=== PATIENT | female | born 1940 | race Caucasian/White ===

== ENCOUNTER → 2024-02-05 07:50 | Outpatient (REF) | payer MEDICARE, OTHER, SELFPAY | LOC: WDC 07:50 | PROVIDERS: ATTENDING PHYSICIAN Family Medicine | DX: R92.8 Other abnormal and inconclusive findings on diagnostic imaging of breast (principal) | CPT/HCPCS: 76642 ==

== ENCOUNTER 2024-02-08 16:08 | Emergency (ER) | payer MEDICARE, OTHER, SELFPAY ==
[2024-02-08 16:15] VITALS: BP 152/68
[2024-02-08 17:25] LABS: Urine Albumin Negative (Neg - Trace); Urine Bilirubin Negative (Negative); Urine Character Clear (Clear); Urine Color Yellow; Urine Glucose Negative (Negative); Urine Ketone Negative (Negative); Urine Leukocyte 2+ (Negative); Urine Nitrite Negative (Negative); Urine Occult Blood Trace (Negative); Urine Specific Gravity 1.015 (<1.030); Urine Urobilinogen Negative (Neg - 1+)
[2024-02-08 17:32] LABS: Urine Bacteria Moderate (Negative); Urine Red Blood Cell 0-2 /HPF (0-2); Urine Squamous Cell 16-20 /LPF (Few)
[2024-02-08] MEDS: NSS 500 IV (19:17)
[2024-02-08 19:34] LABS: % Basophils 0.7 % (0-2); % Eosinophils 2.6 % (0-6); % Immature Granulocytes 0.3 % (0-0.5); % Lymphocytes 25.3 % (20.5-51.1); % Monocytes 11.2 % (1.7-9.3); % Neutrophils 59.9 % (42.2-75.2); Absolute Basophils 0.1 10^3/uL (0-0.2); Absolute Eosinophils 0.2 10^3/uL (0-0.7); Absolute Lymphocytes 2.3 10^3/uL (1.2-3.4); Absolute Neutrophils 5.4 10^3/uL (1.4-6.5); Hematocrit 35.6 % (37.0-47.0); Hemoglobin 11.4 g/dL (12.0-16.0); Mean Corpuscular Hgb 22.4 pg (27.0-31.0); Mean Corpuscular Volume 69.9 fL (81.0-99.0); Mean Platelet Volume 9.6 fL (7.4-10.4); Nucleated Red Blood Cells % 0 %; Platelet Count 306 10^3/uL (130-400); Red Blood Cell Count 5.09 10^6/uL (4.20-5.40); Red Cell Dist. Width 15.3 % (11.5-14.5)
[2024-02-08 19:37] LABS: ALT (SGPT) 18 U/L (0-35); AST (SGOT) 25 U/L (14-36); Albumin 4.3 g/dl (3.5-5.0); Alkaline Phosphatase 55 U/L (38-126); Blood Urea Nitrogen 29 mg/dl (7-17); Calcium 9.7 mg/dl (8.4-10.2); Carbon Dioxide 25 mmol/L (22-30); Chloride 105 mmol/L (98-107); Glucose 98 mg/dl (70-99); Potassium 4.1 mmol/L (3.5-5.1); Sodium 136 mmol/L (135-145); Total Bilirubin 0.4 mg/dl (0.2-1.3); Total Protein 7.2 g/dl (6.3-8.2); eGFR > 60.00
--- NOTE | 2024-02-08 19:45 | ED.GENMED ---
History of Present Illness
General
Chief Complaint: Urinary Symptoms
Source: patient
Exam Limitations: none
Time Seen by Provider: 02/08/24 17:39
Nursing documentation reviewed up to this point in time: agreed with
Travel History
Have you had any contact with someone who has COVID-19?: No
Do you have any symptoms of coronavirus? Fever > 100 degrees, chills, cough, shortness of breath, sore throat, loss of taste or smell, muscle aches, or headache?: No
History of Present Illness
History of Present Illness:
see MDM
Past History
Past History
ED Past Medical History: GERD, HTN, Hypercholesterolemia and Other (Frequent UTI's)
ED Past Surgical History: Gynecological and Orthopedic
Social History
Tobacco: Non-smoker
Alcohol: None
Drug: None
Personal:
Living: with family
Family History
Family History: Other
Review of Systems
Review of Systems
Allergies reviewed?: Yes
All Other Systems: Not applicable
Phy Exam
Physical Exam
Physical Exam:
GENERAL: Alert , in no apparent distress, looks overall very well
EYE: pupils equal and reactive
NECK: Supple
ENT: o/p clr, mmm.
CARDIAC: Regular rate and rhythm .no tachy; + mild systolic murmur
LUNGS: Clear breath sounds bilaterally, no acute respiratory distress, no wheezes/rales/rhonchi
ABDOMEN: Soft, without focal tenderness, no r/g, no cvat, normal bowel sounds
NEUROLOGICAL: Alert and oriented, no focal neuro deficits
SKIN: Warm and dry, skin intact.
MUSCULOSKELETAL: No edema, well perfused. neg ana luisa's sign
PSYCH: Normal and appropriate interaction.
Course
Orders/Labs/Results
Orders:
Orders
02/08/24 17:08
Urinalysis Reflex To Culture Urgent
Date Specimen was Collected: 02/08/24
Time Specimen was Collected: 16:53
Urine Microscopic Reflex Cult Urgent
Urine Culture Urgent
JESUS Source: U
Specimen Description:
Date Specimen was Collected: 02/08/24
Time Specimen was Collected: 16:53
02/08/24 18:45
0.9% Sodium Chloride 500 ml [Nss] 500 ml IV BOLUS
02/08/24 18:46
CT Abd/pel Without Iv Or Oral Urgent
Comment:
Reason For Exam: back pain, h/o urosepsis from stone
02/08/24 19:18
Complete Blood Count/With Diff Urgent
Comprehensive Metabolic Panel Urgent
Lactic Acid Urgent
02/08/24 19:58
Hip, Right 2-3 Views [CR Hip - RT w/wo Pel 2-3 Vw*] Urgent
Comment:
Reason For Exam: fall ongoin pain
Include a pelvis x-ray?: No
02/08/24 19:59
CefTRIAXone [Rocephin] 1,000 mg IV NOW STA
Abnormal Lab Results
02/08/24 02/08/24
17:08 19:18
Hgb 11.4 L g/dL
(12.0-16.0)
Hct 35.6 L %
(37.0-47.0)
MCV 69.9 L fL
(81.0-99.0)
MCH 22.4 L pg
(27.0-31.0)
MCHC 32.0 L g/dL
(33.0-37.0)
RDW 15.3 H %
(11.5-14.5)
Absolute Monos (auto) 1.0 H 10^3/uL
(0.1-0.6)
Monocytes % 11.2 H %
(1.7-9.3)
BUN 29 H mg/dl
(7-17)
Ur Occult Blood Reflex Trace A
(Negative)
Leukocyte Esterase Rfl 2+ A
(Negative)
Urine WBC (Reflex) 11-15 A /HPF
(0-5)
Urine Bacteria (Reflex) Moderate A
(Negative)
02/08/24 19:18
02/08/24 19:18
Vital Signs
Initial and Last Documented VS:
Initial Vital Signs
Temp Pulse Resp BP Pulse Ox
97.8 F 64 18 152/68 98
02/08/24 16:15 02/08/24 16:15 02/08/24 16:15 02/08/24 16:15 02/08/24 16:15
Last Documented Vital Signs
Temp Pulse Resp BP Pulse Ox
98.7 F 63 18 145/53 97
02/08/24 21:37 02/08/24 20:38 02/08/24 16:15 02/08/24 20:38 02/08/24 20:38
MDM/Problems Addressed
Differential Diagnosis Includes:
uti, pyelo, infected stone
MDM/Problems Addressed:
83 y/o F with h/o frequent utis
here with daughter
has had fever/chills and urinary sypmtoms x 3 days
started empiric bactrim which she has had at home frmo her outpatient [place] urologist (has had urosepsis secondary to obstruction from kidney stone in the past)
has had 5 total doses but still having reproted chills and some back pain and felt weak today so daughter brought her here
she has been able to eat, no syncope, no cold symptoms, no diarrhea, vomiting,
well appearing
afebrile
stable vitals no signs of sepsis
back nontender
abdomen mild tenderness suprapbuci but no guarding
urine is contaminated bu thas bacteria, likely partially treated urine with bactrim or resistant
wbc normal
cr normal
ct no obstructive uropatphy
feels better afeter fluids, no fever
d/c home after dose of rocephin
pending culture, but switched to cefdinir.
*Critical Care Note
Total Time (30-74mins, 75-104mins- exclusive of procedures): Not Applicable
ED Attending Note
-
Portions of this chart may have been created with voice recognition software.� Occasional wrong word or��sound alike� substitutions may have occurred due to the inherent limitations of voice recognition software.
Discharge Plan
Departure
Patient Disposition: Home (Routine Discharge)
Date of Disposition: 02/08/24
Time of Disposition: 20:43
Patient with high blood pressure during this ER visit?: Yes
Condition: Fair
Covid-19: Not Applicable
Discharge Problem:
UTI (urinary tract infection)
Instructions: Urinary Tract Infection, Adult (DC), Hip Pain (DC), BLOOD PRESSURE
Prescriptions:
New
cefdinir 300 mg capsule
300 mg PO BID Qty: 14 0RF
No Action
tramadol 50 MG tablet
50 mg PO Q6HPRN PRN (Reason: L arm pain)
clopidogrel [Plavix] 75 MG tablet
75 mg PO DAILY
lisinopril 2.5 MG tablet
20 mg PO BID
gabapentin 100 MG capsule
100 mg PO HS
methenamine hippurate [Hiprex] 1 GM tablet
1 gm PO BID
ascorbic acid (vitamin C) [Vitamin C] 500 MG tablet
500 mg PO DAILY
Lacto 41-B.animalis,bifid-FOS [Ultimate Probiotic-10] 1 EACH capsule
1 ea PO QPM
omeprazole 20 MG capsule,delayed release(DR/EC)
20 mg PO . 1 HR PRE LUNCH
tamsulosin [Flomax] 0.4 MG capsule
0.4 mg PO DAILY
lorazepam 0.5 MG tablet
0.5 mg PO BID
carvedilol [Coreg] 25 MG tablet
25 mg PO BID
fluticasone propionate 1 SPRAY spray,suspension
1 spray NASSPRAY DAILY
Referrals:
UNKNOWN,NO INTERVIEW [Unknown Provider] -
Activity Restrictions/Additional Instructions:
YOU HAVE A URINE INFECTION
BUT NO SIGNS OF KIDNEY INFECTION OR SEPSIS TODAY
TAKE CEFDINIR TWICE A DAY FOR 7 DAYS STARTING TOMORROW
USE TYLENOL FOR PAIN OR FEVERS
DRINK FLUIDS
RETURN FOR: SEVERE PAIN, FEVER DESPITE ANTIBIOTICS, MORE WEAKNESS, VOMITING, DIARRHEA ETC
YOUR XRAY SHOWS ARTHRITIS IN YOUR HIP BUT NO FRACTURES
THIS COULD BE CAUSING YOUR PAIN
FOLLOW UP WITH YOUR DOCTOR NEEDED
Interventions
Interventions:
*Risk Screen - Suicide Last Done: 02/08/24 17:35
*General Assessment Last Done: 02/08/24 17:35
*Neglect/Abuse Screening Last Done: 02/08/24 17:35
*ED COVID-19 Vaccine History Last Done: 02/08/24 17:35
*Nursing Disposition Last Done: 02/08/24 21:37
ED-Female Genitourinary Assessment Last Done: 02/08/24 16:54
Discharge Date and Time
Discharge Date/Time: 02/08/24 21:39
Print Language: GREENLANDIC
[2024-02-08 20:38] VITALS: BP 145/53
[2024-02-08] MEDS: ROCEPHIN 1000 MG IV (20:49)
== END 2024-02-08 21:39 | disposition home or self-care (01) ==
LOC: EMR 16:08
PROVIDERS: Physician Assistant; EMERGENCY PHYSICIAN Emergency Medicine; FAMILY PHYSICIAN Family Medicine
DX: N39.0 Urinary tract infection, site not specified (principal); M54.9 Dorsalgia, unspecified; I10 Essential (primary) hypertension
CPT/HCPCS: 99285; 96374; 96361; 73502; 74176; 80053; 81003; 81015; 83605; 85025; 87086; 87088; 87186

== ENCOUNTER → 2024-08-25 14:36 | Outpatient (REF) | payer MEDICARE, OTHER, SELFPAY | LOC: WDC 14:36 | PROVIDERS: ATTENDING PHYSICIAN Family Medicine | DX: Z12.31 Encounter for screening mammogram for malignant neoplasm of breast (principal); R92.8 Other abnormal and inconclusive findings on diagnostic imaging of breast | CPT/HCPCS: 76642; 77063; 77067 ==

== ENCOUNTER 2024-10-12 11:56 | Emergency (ER) | payer MEDICARE, OTHER, SELFPAY ==
[2024-10-12 12:03] VITALS: BP 159/89
[2024-10-12 12:35] LABS: % Basophils 0.9 % (0-2); % Eosinophils 3.2 % (0-6); % Immature Granulocytes 0.4 % (0-0.5); % Monocytes 7.5 % (1.7-9.3); Absolute Basophils 0.1 10^3/uL (0-0.2); Absolute Eosinophils 0.2 10^3/uL (0-0.7); Absolute Monocytes 0.6 10^3/uL (0.1-0.6); Absolute Neutrophils 4.7 10^3/uL (1.4-6.5); Hematocrit 36.4 % (37.0-47.0); Hemoglobin 11.6 g/dL (12.0-16.0); Mean Corp Hgb Conc. 31.9 g/dL (33.0-37.0); Mean Corpuscular Hgb 22.7 pg (27.0-31.0); Mean Corpuscular Volume 71.1 fL (81.0-99.0); Mean Platelet Volume 9.4 fL (7.4-10.4); Nucleated Red Blood Cells % 0 %; Platelet Count 344 10^3/uL (130-400); Red Blood Cell Count 5.12 10^6/uL (4.20-5.40); Red Cell Dist. Width 15.5 % (11.5-14.5); White Blood Cell Count 7.6 10^3/uL (4.8-10.8)
[2024-10-12 12:37] LABS: ALT (SGPT) 19 U/L (0-35); AST (SGOT) 22 U/L (14-36); Albumin 4.6 g/dl (3.5-5.0); Alkaline Phosphatase 45 U/L (38-126); Blood Urea Nitrogen 24 mg/dl (7-17); Carbon Dioxide 28 mmol/L (22-30); Chloride 101 mmol/L (98-107); Glucose 130 mg/dl (70-99); Sodium 138 mmol/L (135-145); Total Bilirubin 0.3 mg/dl (0.2-1.3); Total Protein 7.2 g/dl (6.3-8.2); eGFR > 60.00
[2024-10-12 12:42] LABS: COVID-19 Antigen Negative (Negative)
[2024-10-12 12:49] LABS: NT-proBNP 774 pg/ml; Troponin I < 0.012 ng/ml
[2024-10-12 14:08] VITALS: BP 159/77
--- NOTE | 2024-10-12 15:55 | ED.GENMED ---
History of Present Illness
General
Chief Complaint: Chest Pain
Source: patient
Exam Limitations: none
Time Seen by Provider: 10/12/24 15:55
Nursing documentation reviewed up to this point in time: agreed with
History of Present Illness
History of Present Illness:
84-year-old female with history of HTN, HLD, GERD, UTI, anemia presents for 2 days of cold sweats, cough, shortness of breath chest tightness off and on.
Went to yesterday and tested neg for UTI an had EKG. Daughter states she has urine strips at home that show positive for UTI.
EKG daughter states was 'fine.' Was told to come to ER for chest pain but pt did not want to come.
Daughter at bedside states pt is a very anxious person and a lot of this may be from anxiety.
Denies n/v/d/c. Denies fever. Denies abdominal pain.
Daughter states pt had stress test a month ago which graphic designer 'wants to keep an eye on her.' Nothing acute.
Past History
Past History
ED Past Medical History: GERD, HTN, Hypercholesterolemia, Psychiatric (anxiety) and Other (Frequent UTI's)
ED Past Surgical History: Gynecological and Orthopedic
Social History
Tobacco: Non-smoker
Alcohol: None
Drug: None
Personal:
Living: with family
Family History
Family History: Other
Review of Systems
Review of Systems
Allergies reviewed?: Yes
All Other Systems: ROS reviewed and negative except as documented in HPI and ROS
Constitutional: Denies fever
Respiratory: Reports cough
Cardiac: Reports chest pain and diaphoresis ('cold sweats' intermittent past 2 days); Denies palpitations
ABD/GI: Denies abdominal pain, nausea, vomiting or diarrhea
: Denies dysuria, frequency or difficulty voiding
Musculoskeletal: Reports no symptoms
Skin: Reports no symptoms
Neurological: Reports no symptoms
Phy Exam
Physical Exam
Physical Exam:
GENERAL: No acute distress. A&Ox3.
CONSTITUTIONAL: Afebrile.
EYES: clear, conjunctivae normal
ENMT: moist mucus membranes, Pharynx nl
RESPIRATORY: Regular respirations, nonlabored, lungs clear.
CARDIOVASCULAR: Regular rate and rhythm, no murmurs, no rubs.
GI: Soft, nontender, normal BS
MUSCULOSKELETAL: Moves with ease. Well perfused.
SKIN: Warm, dry, pink
PSYCH: Normal mood and affect. Well kept, interactive and appropriate
NEUROLOGIC: Awake, alert and oriented. No focal neurological deficits
Scores
Heart Score for Chest Pain Patients
STEMI patient?: Not applicable
Course
Orders/Labs/Results
Orders:
Orders
10/12/24 12:02
Electrocardiogram (*1) Urgent
Reason for Study: Chest Pain
EKG- Treatment ONCE
10/12/24 12:13
COVID-19 Antigen Urgent
Source: Nasal Swab
Complete Blood Count/With Diff Urgent
Comprehensive Metabolic Panel Urgent
Pro-BNP [NT-proBNP] Urgent
Troponin I Urgent
Influenza A+B Rapid Molecular Urgent
JESUS Source: Nasal Swab
Specimen Description:
10/12/24 15:56
CR Chest - 2 Views Urgent
Comment:
Reason For Exam: CP, SOB
10/12/24 16:05
Straight cath- Treatment ONCE
10/12/24 16:35
Urinalysis Reflex To Culture Urgent
Date Specimen was Collected: 10/12/24
Time Specimen was Collected: 16:06
Abnormal Lab Results
10/12/24
12:13
Hgb 11.6 L g/dL
(12.0-16.0)
Hct 36.4 L %
(37.0-47.0)
MCV 71.1 L fL
(81.0-99.0)
MCH 22.7 L pg
(27.0-31.0)
MCHC 31.9 L g/dL
(33.0-37.0)
RDW 15.5 H %
(11.5-14.5)
BUN 24 H mg/dl
(7-17)
Glucose 130 H mg/dl
(70-99)
10/12/24 12:13
10/12/24 12:13
Vital Signs
Initial and Last Documented VS:
Initial Vital Signs
Temp Pulse Resp BP Pulse Ox
97.7 F 62 16 159/89 96
10/12/24 12:03 10/12/24 12:03 10/12/24 12:03 10/12/24 12:03 10/12/24 12:03
Last Documented Vital Signs
Temp Pulse Resp BP Pulse Ox
97.6 F 55 20 157/50 94
10/12/24 16:37 10/12/24 17:45 10/12/24 17:45 10/12/24 17:00 10/12/24 17:45
MDM/Problems Addressed
Differential Diagnosis Includes:
URI, PNA, Covid, UTI
MDM/Problems Addressed:
84-year-old female with history of HTN, HLD, GERD, UTI, anemia presents for 2 days of cold sweats, cough, shortness of breath chest tightness off and on.
Went to yesterday and tested neg for UTI an had EKG. Daughter states she has urine strips at home that show positive for UTI.
EKG daughter states was 'fine.' Was told to come to ER for chest pain but pt did not want to come.
Daughter at bedside states pt is a very anxious person and a lot of this may be from anxiety.
Denies n/v/d/c. Denies fever. Denies abdominal pain.
Daughter states pt had stress test a month ago which graphic designer 'wants to keep an eye on her.' Nothing acute.
CBC unremarkable
CMP with no clinically significant abnormality.
Troponin normal
BNP normal
Covid neg
Flu neg
EKG sinus bradycardia HR 54 (on Coreg)
5:45 p.m.
CXR: NAD
U/A neg
Pt is totally non toxic appearing
w/u today shows nothing worrisome, pt reassured
Pt ambulated out with normal gait at discharge
*Critical Care Note
Total Time (30-74mins, 75-104mins- exclusive of procedures): Not Applicable
ED Attending Note
-
Portions of this chart may have been created with voice recognition software.� Occasional wrong word or��sound alike� substitutions may have occurred due to the inherent limitations of voice recognition software.
Discharge Plan
Departure
Patient Disposition: Home (Routine Discharge)
Date of Disposition: 10/12/24
Time of Disposition: 17:53
Patient with high blood pressure during this ER visit?: No
Condition: Good
Discharge Problem:
URI (upper respiratory infection)
Instructions: Upper respiratory infection in adults - Discharge instructions, Cough in adults - ED discharge instructions
Prescriptions:
No Action
tramadol 50 MG tablet
50 mg PO Q6HPRN PRN (Reason: L arm pain)
clopidogrel [Plavix] 75 MG tablet
75 mg PO DAILY
lisinopril 2.5 MG tablet
20 mg PO BID
gabapentin 100 MG capsule
100 mg PO HS
methenamine hippurate [Hiprex] 1 GM tablet
1 gm PO BID
ascorbic acid (vitamin C) [Vitamin C] 500 MG tablet
500 mg PO DAILY
Lacto 41-B.animalis,bifid-FOS [Ultimate Probiotic-10] 1 EACH capsule
1 ea PO QPM
omeprazole 20 MG capsule,delayed release(DR/EC)
20 mg PO . 1 HR PRE LUNCH
tamsulosin [Flomax] 0.4 MG capsule
0.4 mg PO DAILY
lorazepam 0.5 MG tablet
0.5 mg PO BID
carvedilol [Coreg] 25 MG tablet
25 mg PO BID
fluticasone propionate 1 SPRAY spray,suspension
1 spray NASSPRAY DAILY
cefdinir 300 mg capsule
300 mg PO BID Qty: 14 0RF
Referrals:
NONE,* [Active] -
Jorge Gaston MD [Family Provider] - As needed
Activity Restrictions/Additional Instructions:
As we discussed, there is nothing worrisome in your workup here today
You most likely have a viral upper respiratory infection the common cold.
You may suck on lozenges such as Cepacol or ruiz lozenges with menthol to help control the cough
Drink at least 6 eight ounce glasses of water/fluid daily as you arm MILDLY dehydrated
Interventions
Interventions:
*Risk Screen - Suicide Last Done: 10/12/24 16:37
*General Assessment Last Done: 10/12/24 16:37
*Neglect/Abuse Screening Last Done: 10/12/24 16:37
ED- Fall Risk Assessment Last Done: 10/12/24 16:37
*ED COVID-19 Vaccine History Last Done: 10/12/24 16:37
*Nursing Disposition Last Done: 10/12/24 18:18
ED- Cardiac Assessment Last Done: 10/12/24 16:37
Discharge Date and Time
Discharge Date/Time: 10/12/24 18:19
Print Language: URDU
[2024-10-12 16:37] VITALS: BP 169/60; BMI 28.4
[2024-10-12 16:47] LABS: Urine Albumin Negative (Neg - Trace); Urine Bilirubin Negative (Negative); Urine Character Clear (Clear); Urine Color Yellow; Urine Glucose Negative (Negative); Urine Ketone Negative (Negative); Urine Leukocyte Negative (Negative); Urine Nitrite Negative (Negative); Urine Occult Blood Negative (Negative); Urine Urobilinogen Negative (Neg - 1+)
[2024-10-12 17:00] VITALS: BP 157/50
== END 2024-10-12 18:19 | disposition home or self-care (01) ==
LOC: EMR 11:56
PROVIDERS: Emergency Medicine; Registered Nurse; EMERGENCY PHYSICIAN Emergency Medicine; FAMILY PHYSICIAN Family Medicine
DX: J06.9 Acute upper respiratory infection, unspecified (principal); E78.00 Pure hypercholesterolemia, unspecified; I10 Essential (primary) hypertension; K21.9 Gastro-esophageal reflux disease without esophagitis
CPT/HCPCS: 99285; 71046; 80053; 81003; 83880; 84484; 85025; 87502; 87811; 93005

== ENCOUNTER 2025-06-26 19:42 | Inpatient (IN) | payer MEDICARE, OTHER, SELFPAY ==
[2025-06-26] VITALS (12 sets, daily range): BP systolic 115–183; BP diastolic 53–93; BMI 30.3
[2025-06-26 14:04] LABS: Urine Character Clear (Clear)
[2025-06-26 14:06] LABS: Hematocrit 35.1 % (37.0-47.0); Hemoglobin 11.3 g/dL (12.0-16.0); Mean Corp Hgb Conc. 32.2 g/dL (33.0-37.0); Mean Corpuscular Volume 71.1 fL (81.0-99.0); Nucleated Red Blood Cells % 0 %; Platelet Count 315 10^3/uL (130-400); Red Cell Dist. Width 15.4 % (11.5-14.5)
[2025-06-26 14:10] LABS: Urine White Cell 0-2 /HPF (0-5)
[2025-06-26 14:12] LABS: INR 0.93; PT 12.7 Sec (11.4-14.6)
[2025-06-26 14:24] LABS: ALT (SGPT) 115 U/L (0-35); AST (SGOT) 77 U/L (14-36); Albumin 4.5 g/dl (3.5-5.0); Alkaline Phosphatase 71 U/L (38-126); Blood Urea Nitrogen 20 mg/dl (7-17); Calcium 9.8 mg/dl (8.4-10.2); Carbon Dioxide 26 mmol/L (22-30); Chloride 105 mmol/L (98-107); Glucose 134 mg/dl (70-99); Potassium 3.7 mmol/L (3.5-5.1); Sodium 139 mmol/L (135-145); Total Protein 7.2 g/dl (6.3-8.2); eGFR > 60.00
[2025-06-26 14:34] LABS: Troponin I < 0.012 ng/ml
--- NOTE | 2025-06-26 14:37 | ED.GENMED ---
History of Present Illness
General
Chief Complaint: Chest Pain
Source: patient
Time Seen by Provider: 06/26/25 14:20
History of Present Illness
History of Present Illness:
85-year-old female presents to the emergency room complaining of shortness of breath, chest pain, fatigue. Patient has been feeling the symptoms for the past couple days. Daughter is here with the patient providing much of the history. Patient
has been having various complaints it sounds like for some time. She was recently treated for a urinary tract infection completing the antibiotics a couple days ago. Patient believes the antibiotics made her blood pressure more labile. She
measures her blood pressure couple times at least every day. Measurements have been between 110's- 20s in the morning to 140s-50s in the afternoon. Chest pain has been present since last night. Daughter also concerned that the use of gabapentin
could be affecting her. She started taking gabapentin again couple weeks ago.
Past History
Past History
ED Past Medical History: GERD, HTN, Hypercholesterolemia, Psychiatric (anxiety) and Other (Frequent UTI's)
ED Past Surgical History: Gynecological and Orthopedic
Social History
Tobacco: Non-smoker
Alcohol: None
Drug: None
Personal:
Living: with family
Family History
Family History: Other
Phy Exam
Physical Exam
Physical Exam:
General: Awake, Alert, Oriented X3. No acute distress. Appears stated age
Vitals: Moderately hypertensive
Head: Atraumatic
Eyes: Pupils equal, EOMI
Throat: Airway intact, no exudates
Neck: Trachea midline
Chest: Some tenderness to palpation of the anterior chest wall
Lungs: Clear and equal b/l
Heart: Regular rate, no murmurs
Abd: Soft, Nontender, No pulsatile mass
Neuro: Nonfocal
Skin: Warm, dry, no rash
Extremities: pulses equal b/l, no edema
Scores
Heart Score for Chest Pain Patients
STEMI patient?: No
History: Slightly or Non-Suspicious
ECG: Normal
Age: >/= 65 years
Risk Factors: 1 or 2 Risk Factors
Troponin: </= Normal Limit
Heart Score for Chest Pain Patients: 3
Heart Score Risk: 2.5% MACE over next 6 weeks
Course
Orders/Labs/Results
Orders:
Orders
06/26/25 13:30
Electrocardiogram (*1) Urgent
Reason for Study: Chest Pain
EKG- Treatment ONCE
06/26/25 13:40
CR Chest - 2 Views Urgent
Comment:
Reason For Exam: chest pain
06/26/25 13:54
Complete Blood Count/With Diff Urgent
Comprehensive Metabolic Panel Urgent
Lipase Urgent
Comment: ADD ON
Pro-BNP [NT-proBNP] Urgent
Prothrombin Time Urgent
Troponin I Urgent
Urinalysis Reflex To Culture Urgent
Date Specimen was Collected: 06/26/25
Time Specimen was Collected: 13:40
Urine Microscopic Reflex Cult Urgent
06/26/25 Dinner
Clear Liquid
At Your Request: Full Participation
06/26/25 15:58
US Abdomen Complete/Upper Urgent
Comment:
Reason For Exam: upper abd/chest pain elevated lft's
06/26/25 19:28
Admit/Transfer Patient As Directed
Co-Sign Provider:
Level of Care: Inpatient admission
Assign to:: Medical/Surgical
Physician / Group: [place]
Diagnosis: Biliary colic
Reason for Hospitalization: choledocholithiasis
Expected length of stay greater than two midnights?: Yes
ELOS- Estimated Length of Stay in days: 2
I certify the patient meets the requirements for IP care: Yes
06/26/25 19:29
PRN Pain Medication Management As Directed
May give lesser potent ordered pain med per pt: Yes
preference::
Protocol:: Medication orders for pain may be administered in a
manner that supports deferring to patient preference
when the pt is:
- Requesting an ordered lesser potent pain medication.
Least to most potent pain medications are defined
as: acetaminophen < NSAID < tramadol < opioids
(morphine, oxycodone, hydromorphone).
- Requesting a lesser dose of the same medication IF
ORDERED.
- Requesting a less intrusive route of administration
if both routes are prescribed by the provider (PO <
IV).
06/26/25 19:30
Code Status As Directed
Resuscitation Status: Full Code
06/26/25 19:33
Morphine Sulfate 1 mg IV NOW STA
Ondansetron Injectable [Zofran] 4 mg IV NOW STA
Pantoprazole [Protonix IV] 40 mg IV NOW STA
06/26/25 20:43
Acetaminophen [Tylenol] 650 mg PO Q4HPRN PRN
Bisacodyl [Dulcolax] 10 mg RECTAL [id number] PRN
Carvedilol [Coreg] 25 mg PO BID
Docusate W/Senna [Senokot-S] 1 tablet PO BIDPRN PRN
HYDROmorphone [Dilaudid] 0.25 mg IV Q4HPRN PRN
Ondansetron Injectable [Zofran] 4 mg IV Q6HPRN PRN
Polyethylene Glycol Powder [Miralax] 17 grams PO DAILYPRN PRN
06/26/25 20:43
Activity As Directed
Activity Level: With Assistance
Vital Signs As Directed
Frequency: Per unit guidelines
DX Deep Vein Thrombosis Video Routine
06/27/25 08:00
Chlorthalidone [Hygroton] 12.5 mg PO DAILY
Clopidogrel Bisulfate [Plavix] 75 mg PO DAILY
Tamsulosin [Flomax] 0.4 mg PO DAILY
06/27/25 08:25
Complete Blood Count/No Diff IN AM
Lipase IN AM
06/27/25 12:00
Fenofibrate [Tricor] 48 mg PO DAILY@1200
06/27/25 18:00
Atorvastatin [Lipitor] 40 mg PO QPM
Enoxaparin Sodium [Lovenox] 40 mg SC QPM
Lisinopril [Zestril] 40 mg PO QPM
Pantoprazole [Protonix IV] 40 mg IV QPM
Abnormal Lab Results
06/26/25
13:54
Hgb 11.3 L g/dL
(12.0-16.0)
Hct 35.1 L %
(37.0-47.0)
MCV 71.1 L fL
(81.0-99.0)
MCH 22.9 L pg
(27.0-31.0)
MCHC 32.2 L g/dL
(33.0-37.0)
RDW 15.4 H %
(11.5-14.5)
BUN 20 H mg/dl
(7-17)
Glucose 134 H mg/dl
(70-99)
AST 77 H U/L
(14-36)
ALT 115 H U/L
(0-35)
Lipase 512 H U/L
(23-300)
Ur Occult Blood Reflex 1+ A
(Negative)
Urine RBC 3-6 A /HPF
(0-2)
Urine Bacteria (Reflex) Few A
(Negative)
06/26/25 13:54
06/26/25 13:54
Vital Signs
Initial and Last Documented VS:
Initial Vital Signs
Temp Pulse Resp BP Pulse Ox
98.0 F 60 18 183/93 99
06/26/25 13:37 06/26/25 13:37 06/26/25 13:37 06/26/25 13:37 06/26/25 13:37
Last Documented Vital Signs
Temp Pulse Resp BP Pulse Ox
97.6 F 53 16 162/79 96
06/28/25 07:00 06/28/25 07:00 06/28/25 07:00 06/28/25 08:08 06/28/25 07:00
MDM/Problems Addressed
Differential Diagnosis Includes:
UTI, adverse medication effect, pneumonia, acs
MDM/Problems Addressed:
Patient presents with a variety of symptoms including chest pain, shortness of breath. Patient recently treated for urinary tract infection. Workup here reveals elevated LFTs. Ultrasound obtained which shows possible biliary ductal dilatation.
Given upper abdominal pain, elevated LFTs and ultrasound finding will hospitalize for further evaluation.
*Pulse Oximetry
SaO2: 98
Oxygen Mode of Delivery: Room air
Patient hypoxic: no
*EKG
Interpreted by ED Provider?: Yes
Heart Rate: 64
Rate: normal
Rhythm: sinus
Lefors: normal axis
Interval: normal interval
QRS Pattern: normal QRS
Ischemia: no ischemia
*Senior Core Java Developer Interpretation
Rate: normal
Interpretation: normal
Rhythm: sinus
*Critical Care Note
Total Time (30-74mins, 75-104mins- exclusive of procedures): Not Applicable
ED Attending Note
-
Portions of this chart may have been created with voice recognition software.� Occasional wrong word or��sound alike� substitutions may have occurred due to the inherent limitations of voice recognition software.
Discharge Plan
Departure
Patient Disposition: Admit
Date of Disposition: 06/26/25
Time of Disposition: 18:45
Presentation/result/management discussed w/ accepting MD/DO: Hospitalist
Condition: Fair
Discharge Problem:
Abdominal pain, Choledocholithiasis
Interventions
Interventions:
*Risk Screen - Suicide Last Done: 06/26/25 21:55
*General Assessment Last Done: 06/26/25 13:39
*Neglect/Abuse Screening Last Done: 06/26/25 13:39
*ED- Fall Risk Assessment Last Done: 06/26/25 14:17
*ED COVID-19 Vaccine History Last Done: 06/26/25 13:39
*Nursing Disposition Last Done: 06/26/25 20:38
ED- Cardiac Assessment Last Done: 06/26/25 19:10
Discharge Date and Time
Discharge Date/Time: 06/26/25 20:38
--- NOTE | 2025-06-26 19:09 | HPS.HSE ---
Family Physician
-
Family Physician: Nando Collins MD
Chief Complaint
-
Chest pain
History of Present Illness
This is a 85 y.o female with past medical history significant for hypertension, NSTEMI, hyperlipidemia, GERD who presents to the emergency department with some chest pain/epigastric discomfort from some shortness of breath.
According to daughter who provided history, patient has been having multiple complaints for some time now. She has been treated for reflux/heartburn symptoms over the last month. She also has been treated for all urinary tract infections as she
has history of recurring urinary tract infections. She is currently on prophylactic medications for that. She has been having labile blood pressures although ranges mostly in the 120s to 150s. She reports that for the last 2 days she has had
epigastric pain with associated nausea but no vomiting. She has had a history of nephrolithiasis complicated by sepsis in the past but currently denies any flank pain. She has had no fevers or chills. No known history of gallstones. She does not
drink alcohol.
While in the emergency department she was afebrile, blood pressure 152/71 with a pulse of 72 and satting 97% on room air. ECG shows normal sinus rhythm at a rate of 64. Troponin was negative, BNP was negative.
CBC was unremarkable. Electrolytes BUN and creatinine were all in a normal range. UA was unremarkable.
LFTs with normal bili, slight elevation in AST and ALT, lipase pending.
Abdominal u/s: There is mild biliary duct dilation with the common bile duct measuring up to 9 mm. Additionally there is mild dilation of the visualized pancreatic duct measuring up to 5 mm. An obstructing lesion or a ampullary stone is possible.
Consider further evaluation with dedicated MRCP.
Biliary sludge. The gallbladder wall measures 3 mm which is upper limits of normal. There are no sonographic findings suggestive of acute cholecystitis.
Medical History
Past Medical History
Past Medical History: Reports CAD (NSTEMI), GERD, HTN and Hypercholesterolemia
Past Surgical History: Reports Other
Social History
Tobacco: Non-smoker
Alcohol: None
Drug: None
Family History
Family History: Not pertinent
Allergies / Home Medications
Allergies reflects when Allergies were last updated in [facility].
Home Medications with original date entered in [facility]
Allergy/Medication List:
Allergies
Allergy/AdvReac Type Severity Reaction Status Date / Time
codeine Allergy Unknown Verified 10/12/24 12:02
erythromycin base Allergy Unknown Verified 10/12/24 12:02
levofloxacin Allergy Unknown Verified 10/12/24 12:02
Penicillins Allergy Unknown Verified 10/12/24 12:02
Home Medications
tramadol 50 mg tablet 50 mg PO HS 03/18/17
clopidogrel 75 mg tablet (Plavix) 75 mg PO DAILY 10/02/17
gabapentin 100 mg capsule 100 mg PO HS 10/14/17
ascorbic acid (vitamin C) 500 mg tablet (Vitamin C) 500 mg PO DAILY 12/22/17
tamsulosin 0.4 mg capsule (Flomax) 0.4 mg PO DAILY 06/27/18
carvedilol 25 mg tablet (Coreg) 25 mg PO BID 05/26/19
atorvastatin 40 mg tablet (Lipitor) 40 mg PO QPM 06/26/25
chlorthalidone 12.5 mg tablet 12.5 mg PO DAILY 06/26/25
fenofibrate nanocrystallized 48 mg tablet (Tricor) 48 mg PO DAILY@1200 06/26/25
lisinopril 40 mg tablet 40 mg PO QPM 06/26/25
pantoprazole 20 mg tablet,delayed release (Protonix) 20 mg PO QPM 06/26/25
Review of Systems
-
Constitutional: Reports No Symptoms
EENT: Reports No Symptoms
Respiratory: Reports No Symptoms
Cardiac: Reports Chest Pain
Abdomen/GI: Reports Abdominal Pain
: Reports No Symptoms
Musculoskeletal: Reports No Symptoms
Skin: Reports No Symptoms
Neurological: Reports No Symptoms
Endocrine: Reports No Symptoms
Hematologic/Lymphatic: Reports No Symptoms
Psych: Reports No Symptoms
Physical Exam
Vital Signs
Vital Signs
Temp Pulse Resp BP Pulse Ox
98.0 F 72 16 152/71 97
06/26/25 13:37 06/26/25 18:15 06/26/25 18:17 06/26/25 18:17 06/26/25 18:17
Physical Exam
General: Well Developed, Well Nourished and No Apparent Distress
HEENT: NormoCephalic, Moist mucous membranes and Atraumatic
Respiratory: Clear
Cardiac: S1/S2 and Regular Rhythm; No Murmur or Rub
GI: Soft, Non Tender, Non Distended and Normal Bowel Sounds; No Organomegaly
Rectal: Deferred by Provider
Musculoskeletal: No Clubbing, No Cyanosis and No Edema
Skin: No Rash
Neuro: Nonfocal/grossly intact
Laboratory Results
-
06/26/25 13:54
06/26/25 13:54
Laboratory Results
PT 12.7 Sec (11.4-14.6) 06/26/25 13:54
INR 0.93 06/26/25 13:54
Total Bilirubin 0.5 mg/dl (0.2-1.3) 06/26/25 13:54
AST 77 U/L (14-36) H 06/26/25 13:54
ALT 115 U/L (0-35) H 06/26/25 13:54
Alkaline Phosphatase 71 U/L (38-126) 06/26/25 13:54
Troponin I < 0.012 ng/ml 06/26/25 13:54
Data Reviewed
-
Ultrasound: Report Reviewed by me
Medical Tests (Nuc Med, Echo, EKG etc): Image Personally Visualized and interpreted
Lab Data: Labs Reviewed by me
Old Records: Reviewed
Impression/Plan
-
IMPRESSION:
85-year-old with past medical history of hypertension hyperlipidemia GERD, CAD status post NSTEMI and no stents who presents to the emergency department with 2 days of epigastric pain in the setting of her recent episodes of reflux/GERD symptoms.
Found to have biliary sludge without acute cholecystitis. There is mild biliary duct dilation up to 9 mm as well as dilation of the visualized pancreatic duct concerning for choledocholithiasis/biliary colic. No current evidence of pancreatitis
with lipase has not been sent.
PLAN:
Biliary colic/choledocholithiasis
- Admit to MedSurg
-Clear liquid diet for now as tolerated
-Pain control and antiemetics
-Trend LFTs
-Check lipase
-MRCP
-GI consultation
Hypertension
-Will continue p.m. lisinopril as well as regular carvedilol
-Chlorthalidone in a.m.
CAD-history of NSTEMI, no stents.
- Continue Plavix and statin
DVT PPX - lovenox sq
Code status - Full Code
[2025-06-26] MEDS: ZOFRAN 4 MG IV (19:49)
[2025-06-26] MEDS: PROTONIX IV 40 MG IV (19:50)
[2025-06-26] MEDS: MORPHINE SULFATE 1 MG IV (19:52)
[2025-06-26 21:36] LABS: Lipase 512 U/L (23-300)
[2025-06-26] MEDS: COREG PO (22:31)
[2025-06-27] MEDS: TYLENOL 650 MG PO ×2 (01:59→08:45)
[2025-06-27 07:16] VITALS: BP 140/63
--- NOTE | 2025-06-27 07:52 | W.PN.HOSP.TC ---
Today's Communication/Plan
-
MRCP pending.
GI consult pending
Assessment / Plan
Assessment / Plan
Impression:
This is a 85 y.o female with past medical history significant for hypertension, NSTEMI, hyperlipidemia, GERD who presents to the emergency department with some chest pain/epigastric discomfort from some shortness of breath.
She has been treated for reflux/heartburn symptoms over the last month, for the last 2 days she has had epigastric pain with associated nausea but no vomiting. While in the emergency department LFTs with normal bili, slight elevation in AST and ALT,
lipase pending.
Abdominal u/s: There is mild biliary duct dilation with the common bile duct measuring up to 9 mm. Additionally there is mild dilation of the visualized pancreatic duct measuring up to 5 mm. An obstructing lesion or a ampullary stone is possible.
Biliary sludge. The gallbladder wall measures 3 mm which is upper limits of normal. There are no sonographic findings suggestive of acute cholecystitis.
Patient admitted under hospitalist service, clear liquid diet, MRCP ordered, GI consulted,
Assessment/plan:
Biliary colic/choledocholithiasis
- Admit to MedSurg
-Clear liquid diet for now as tolerated
-Pain control and antiemetics
-Trend LFTs
-Check lipase
-MRCP
-GI consultation
- Consider surgery consult
Chest pain atypical, CAD-history of NSTEMI, no stents.
Continue Plavix and statin
Repeat EKG and troponin
Consider cardiology consult patient may need a stress test which can be done as OP.
Hypertension
-Will continue p.m. lisinopril as well as regular carvedilol (hold for bradycardia)
-Chlorthalidone in a.m.
CODE STATUS: Full code
DVT prophylaxis: Lovenox
Diet: clear liquid diet
Family communication: Discussed with family at bedside
Disposition: Pending MRCP result, GI consult
Total time spent on today's encounter was 65 minutes which included time spent in counseling the patient/family regarding diagnosis and treatment plan as listed above, goals of care, and symptom management. Case was discussed with nursing staff,
specialists, and care coordinators/case management. All labs and imaging personally reviewed by me. Remainder the time spent in detailed review of previous records, lab data, imaging, and other medical provider documentation.
Anticipated Discharge: 24 - 48 hours
Subjective/Interval History
-
Date of Service: June 27, 2025
Patient seen and examined at bedside, family at bedside provide translation.
Patient admitted with chest heaviness and epigastric abdominal pain, ultrasound abdomen was concerning of gallbladder sludge, has elevated lipase.
MRCP report pending.
Objective Data
-
Labs:
Laboratory Results
06/27/25
06:00
WBC Pending
Hgb Pending
Hct Pending
Plt Count Pending
Sodium Pending
Potassium Pending
Chloride Pending
Carbon Dioxide Pending
BUN Pending
Creatinine Pending
Glucose Pending
Calcium Pending
Total Bilirubin Pending
AST Pending
ALT Pending
Alkaline Phosphatase Pending
Vital Signs:
Vital Signs
Temp Pulse Resp BP Pulse Ox
97.7 F 60 16 115/68 92
06/26/25 23:00 06/26/25 23:00 06/26/25 23:00 06/26/25 23:00 06/26/25 23:00
Physical Exam
-
General: Well Developed, Well Nourished, No Apparent Distress and Comfortable
HEENT: Normocephalic, Atraumatic, Moist Mucous Membranes, No Ptosis, PERRLA and Nose Appears Normal
Respiratory: Clear to Auscultation and Non Labored Respirations
Cardiac: Regular Rhythm and S1/S2
Breast: Deferred by me
GI: Soft, Nondistended, Normal Bowel Sounds and Tender
Genito-urinary: No Costovertebral Tender
Musculoskeletal: No Clubbing, No Cyanosis and No Edema
Skin: Warm
Neuro: Awake, Alert, Oriented, AO x 3 and No Motor Deficits
Psych: Calm
Data Reviewed
-
Diagnostic Radiology: Image personally visualized and interpreted and Report Reviewed by me
CT Scan: Image personally visualized and interpreted and Report Reviewed by me
Ultrasound: Image personally visualized and interpreted and Report Reviewed by me
MRI: Image personally visualized and interpreted and Report Reviewed by me
Medical Tests (Nuc Med, Echo etc): Image personally visualized and interpreted and Report Reviewed by me
Labs: Labs Reviewed by me
Old Records: Reviewed
[2025-06-27 08:38] LABS: Hematocrit 35.8 % (37.0-47.0); Hemoglobin 11.4 g/dL (12.0-16.0); Mean Corp Hgb Conc. 31.8 g/dL (33.0-37.0); Mean Corpuscular Volume 71.7 fL (81.0-99.0); Platelet Count 305 10^3/uL (130-400); Red Cell Dist. Width 15.6 % (11.5-14.5)
[2025-06-27] MEDS: LR 1000 IV (08:44)
[2025-06-27] MEDS: FLOMAX 0.4 MG PO (08:49)
[2025-06-27] MEDS: PLAVIX 75 MG PO (08:49)
[2025-06-27] MEDS: COREG PO ×2 (08:51→21:39)
[2025-06-27 09:02] LABS: ALT (SGPT) 84 U/L (0-35); AST (SGOT) 42 U/L (14-36); Albumin 4.1 g/dl (3.5-5.0); Alkaline Phosphatase 73 U/L (38-126); Blood Urea Nitrogen 18 mg/dl (7-17); Calcium 9.7 mg/dl (8.4-10.2); Carbon Dioxide 28 mmol/L (22-30); Chloride 106 mmol/L (98-107); Estimated Creatinine Clearance 44 ml/min; Glucose 114 mg/dl (70-99); Lipase 226 U/L (23-300); Potassium 3.9 mmol/L (3.5-5.1); Sodium 140 mmol/L (135-145); Total Protein 6.7 g/dl (6.3-8.2); eGFR > 60.00
--- NOTE | 2025-06-27 10:56 | CM ---
CM following re: discharge planning.
Reviewed pt's chart, met with pt and pt's daughter at bedside.
Pt is an 85 year old female, admitted with primary dx of Chest pain. Pt's primary language is Welsh. Per daughter, pt was born and grew up in [place], emigrated with family to [place] many years ago and resided with family in [facility]. Per
daughter, pt lives with 2SH, 1 steps to enter, has 3 supportive children. Per daughter pt uses a cane occasionally. No VN or SNF history.
PCP: Nando Collins
Pharmacy: [facility]
D/C plan: home with anticipated no needs vs VN.
CM will follow with discharge plan updates as hospitalization progresses
[2025-06-27] MEDS: MOTRIN 400 MG PO ×2 (11:26→21:30)
[2025-06-27] MEDS: TRICOR 48 MG PO (12:31)
--- NOTE | 2025-06-27 14:06 | CON.GI ---
Addendum entered and electronically signed by Dana Ly MD 06/27/25 17:30:
I saw and examined the patient.
The DESIGN TRANSFERRER or PA's note was reviewed and I agree with the note.
Comment: 85-year-old Danish speaking female with history of hypertension, cardiomyopathy, non-ST elevated UT, no history of cardiac stents but currently on Plavix presenting with epigastric pain starting Friday which was radiating through the
back. Some history was obtained from patient's son who was in the room. No previous similar episodes. Since she had the pain medication, the pain is much improved. Currently denies abdominal pain, some nausea but no vomiting. No heartburn, she
does take pantoprazole 20 mg a day and reports that this was done by a physician in [place]. No trouble swallowing. No trouble with bowel movements, no blood in the stool or black stool. No unintentional weight loss or NSAID use.
In the emergency room, labs showed microcytic anemia, hemoglobin between 11-12. As per patient, she has history of anemia, likely thalassemia. CMP shows mildly elevated transaminases, 2-3 times upper limit of normal with normal direct bilirubin
and alkaline phosphatase. Lipase mildly elevated at admission and now normalized.
abdominal ultrasound showed mild biliary ductal dilation with CBD around 9 mm and mildly dilated pancreatic duct to about 5 mm. Gallbladder sludge noted. No evidence of cholecystitis.
On exam, mild discomfort in the epigastrium without any guarding or rigidity
-Right upper quadrant/epigastric pain, sudden onset
Ultrasound showing biliary sludge but mildly dilated common bile duct and pancreatic duct
Rule out biliary colic, choledocholithiasis versus other
Currently on clear liquid diet
For MRI/MRCP to evaluate ductal dilation and gallbladder as well
Last Plavix was this morning
-Microcytosis, likely thalassemia
No egd/colon per pt. No overt GI bleeding.
Will f/u on the above testing
Original Note:
Consultation
-
Date/Time Consultation Requested: 06/27/25 6977
Date/Time Consultation Performed: 06/27/25 1400
Requesting Provider: Dr. Knight
Performing Provider: Dr. Ly/AYALA Musa
Reason for Consultation: Abd pain
Medical History
Chief Complaint / HPI
Chief Complaint: abd pain
History of Present Illness:
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
emergency room with 2-week history of intermittent epigastric discomfort however throughout Friday afternoon she had some eggplant and stuff soup kidney with sausage and developed epigastric discomfort with radiation through the back. She also
got anxious and had some chest discomfort. She felt 'sick to her stomach'. This continued throughout the night. After this they decided to proceed to the emergency room for further evaluation. We are asked to evaluate for the same. History was
obtained mostly through her daughter as there is somewhat of a language barrier however patient is able to participate in some of the history. We are asked to evaluate for the same. The patient states that she did not eat dinner that night because
she felt unwell. She states that she had chills however there was no fever, there was some mild nausea however no vomiting. She had no bilirubinuria, she did not look at her bowel movements. Her pain continues still in the epigastric/right upper
quadrant area. It is slightly improved from when she came in. She is on Plavix. Her daughter denies any history of stroke, cardiac stents or peripheral vascular stenting.
Past Medical History
Past Medical History: Other (Hypertension, recovered cardiomyopathy, systolic CHF, kidney stones, hypertension, hyperlipidemia, non-ST elevated UT (03/2017), urosepsis)
Past Surgical History: Other (Left humerus fracture, UPHOLSTERY CLEANER surgery)
Social History
Tobacco: Non-Smoker
Alcohol: None
Drug: None
Personal:
Living: With Family
Family History
Family History: Other (No family history of gastrointestinal malignancy or IBD)
Allergies / Home Medications
Allergy/AdvReac Type Severity Reaction Status Date / Time
codeine Allergy Unknown Verified 10/12/24 12:02
erythromycin base Allergy Unknown Verified 10/12/24 12:02
levofloxacin Allergy Unknown Verified 10/12/24 12:02
Penicillins Allergy Unknown Verified 10/12/24 12:02
�Medication �Instructions �Recorded
tramadol 50 mg tablet 50 mg PO HS Pain 03/18/17
clopidogrel 75 mg tablet (Plavix) 75 mg PO DAILY Blood Clot 10/02/17
Prevention/Tx
gabapentin 100 mg capsule 100 mg PO HS Neurological Condition 10/14/17
ascorbic acid (vitamin C) 500 mg 500 mg PO DAILY Supplement 12/22/17
tablet (Vitamin C)
tamsulosin 0.4 mg capsule (Flomax) 0.4 mg PO DAILY Urinary Issue 06/27/18
carvedilol 25 mg tablet (Coreg) 25 mg PO BID Blood Pressure 05/26/19
atorvastatin 40 mg tablet (Lipitor) 40 mg PO QPM High Cholesterol 06/26/25
chlorthalidone 12.5 mg tablet 12.5 mg PO DAILY Fluid 06/26/25
Retention/Swelling
fenofibrate nanocrystallized 48 mg 48 mg PO DAILY@1200 High 06/26/25
tablet (Tricor) Cholesterol
lisinopril 40 mg tablet 40 mg PO QPM Blood Pressure 06/26/25
pantoprazole 20 mg tablet,delayed 20 mg PO QPM Gastrointestinal Issue 06/26/25
release (Protonix)
Review of Systems
-
All other systems: A 12 pt ROS was Negative except as stated above in HPI
Vital Signs
Temp Pulse Resp BP Pulse Ox
98.7 F 52 16 140/63 94
06/27/25 07:16 06/27/25 08:50 06/27/25 07:16 06/27/25 08:50 06/27/25 07:16
Physical Exam
Exam
General: No Apparent Distress
HEENT: Anicteric
Respiratory: Clear (Anterior)
Cardiac: Regular Rhythm and Murmur
GI: Soft, Non Distended, Normal Bowel Sounds and Tender (Right upper quadrant/epigastric)
Skin: Warm and Dry
Neuro: AO x 3
Psych: Calm
Results
WBC 6.8 10^3/uL (4.8-10.8) 06/27/25 08:25
Hgb 11.4 g/dL (12.0-16.0) L 06/27/25 08:25
Hct 35.8 % (37.0-47.0) L 06/27/25 08:25
MCV 71.7 fL (81.0-99.0) L 06/27/25 08:25
Plt Count 305 10^3/uL (130-400) 06/27/25 08:25
Absolute Neuts (auto) 4.1 10^3/uL (1.4-6.5) 06/26/25 13:54
PT 12.7 Sec (11.4-14.6) 06/26/25 13:54
INR 0.93 06/26/25 13:54
Sodium 140 mmol/L (135-145) 06/27/25 08:25
Potassium 3.9 mmol/L (3.5-5.1) 06/27/25 08:25
Chloride 106 mmol/L (98-107) 06/27/25 08:25
Carbon Dioxide 28 mmol/L (22-30) 06/27/25 08:25
BUN 18 mg/dl (7-17) H 06/27/25 08:25
Creatinine 0.8 mg/dL (0.6-1.0) 06/27/25 08:25
Calcium 9.7 mg/dl (8.4-10.2) 06/27/25 08:25
Total Bilirubin 0.6 mg/dl (0.2-1.3) 06/27/25 08:25
AST 42 U/L (14-36) H 06/27/25 08:25
ALT 84 U/L (0-35) H 06/27/25 08:25
Alkaline Phosphatase 73 U/L (38-126) 06/27/25 08:25
Lipase 226 U/L (23-300) 06/27/25 08:25
Diagnostic Image Results:
Chest x-ray:
IMPRESSION:
No acute cardiopulmonary abnormality.
Ultrasound abdomen:
There is mild biliary duct dilation with the common bile duct measuring up to 9 mm. Additionally there is mild dilation of the visualized pancreatic duct measuring up to 5 mm. An obstructing lesion or a ampullary stone is possible. Consider further
evaluation with dedicated MRCP.
Biliary sludge. The gallbladder wall measures 3 mm which is upper limits of normal. There are no sonographic findings suggestive of acute cholecystitis.
Prior GI Procedures:
EGD: Does not recall ever having one
Colonoscopy: Does not recall ever having one
Assessment / Plan
-
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
emergency room with 2-week history of intermittent epigastric discomfort however throughout Friday afternoon she had some eggplant and stuff soup kidney with sausage and developed epigastric discomfort with radiation through the back. She also
got anxious and had some chest discomfort. She felt 'sick to her stomach'. This continued throughout the night. After this they decided to proceed to the emergency room for further evaluation. We are asked to evaluate for the same. WBC 6.8,
hemoglobin 11.4, hematocrit 35.8, platelets 305, MCV 71.7, MCH 22.8 (microcytic indices dating back to 2017), PT 12.7, INR 0.93, sodium 140, potassium 3.9, BUN 18, creatinine 0.8, glucose 114, total bilirubin 0.6, direct bilirubin 0.4, AST 42 (77),
ALT 84, (115), alk phos 73, (71), troponin <0.012, proBNP 243, albumin 4.1, lipase 226 (512). Ultrasound abdomen showing mild biliary ductal dilatation with CBD measuring up to 9 mm. Mild dilatation of the visualized pancreatic duct measuring up
to 5 mm. Recommend MRCP. Biliary sludge.
Impression:
Right upper quadrant/epigastric pain
Dilated CBD and Pancreatic duct
Biliary Sludge
Mildly Elevated AST/ALT
On Plavix, given this am
Anemia, microcytic indices noted since 2017, ? thalassemia
Plan:
-Continue PPI
-Await MRCP
-Trend LFTs
-check iron studies
-Further recommendations to be forthcoming.
-
-
Thank you for consultation and allowing me to participate in the patient's care. Please call the transitional nurse GI physician during the after hours with any questions or concerns.
[2025-06-27 15:00] VITALS: BP 167/75
[2025-06-27] MEDS: ZESTRIL 40 MG PO (16:43)
[2025-06-27] MEDS: LIPITOR 40 MG PO (19:38)
[2025-06-27] MEDS: NSS (PRESERVATIVE FREE) 10 ML IV (19:39)
[2025-06-27] MEDS: LOVENOX 40 MG SC (19:39)
[2025-06-27] MEDS: PROTONIX IV 40 MG IV (19:39)
[2025-06-27 23:21] VITALS: BP 139/66
[2025-06-28] MEDS: DILAUDID 0.25 MG IV (03:44)
[2025-06-28 06:57] LABS: Hematocrit 34.8 % (37.0-47.0); Hemoglobin 10.9 g/dL (12.0-16.0); Mean Corp Hgb Conc. 31.3 g/dL (33.0-37.0); Mean Corpuscular Volume 71.2 fL (81.0-99.0); Platelet Count 286 10^3/uL (130-400); Red Cell Dist. Width 15.5 % (11.5-14.5)
[2025-06-28 07:00] VITALS: BP 162/79
[2025-06-28 07:09] LABS: ALT (SGPT) 63 U/L (0-35); AST (SGOT) 30 U/L (14-36); Albumin 3.9 g/dl (3.5-5.0); Alkaline Phosphatase 68 U/L (38-126); Blood Urea Nitrogen 16 mg/dl (7-17); Calcium 9.6 mg/dl (8.4-10.2); Carbon Dioxide 27 mmol/L (22-30); Chloride 106 mmol/L (98-107); Estimated Creatinine Clearance 51 ml/min; Glucose 114 mg/dl (70-99); Iron 79 ug/dl (37-170); Potassium 3.7 mmol/L (3.5-5.1); Sodium 139 mmol/L (135-145); Total Protein 6.5 g/dl (6.3-8.2); eGFR > 60.00
[2025-06-28 07:15] LABS: Troponin I < 0.012 ng/ml
[2025-06-28 07:20] LABS: Total Iron Binding Capacity 280 ug/dl (265-497)
--- NOTE | 2025-06-28 07:20 | PTCARENOTE ---
Daughter states that patient takes Plavix for a prior cardiac stent
[2025-06-28 07:45] LABS: Ferritin 83.8 ng/ml (11.1-264.0)
[2025-06-28] MEDS: FLOMAX 0.4 MG PO (08:06)
[2025-06-28] MEDS: TYLENOL 650 MG PO ×3 (08:07→23:24)
[2025-06-28] MEDS: COREG 25 MG PO ×2 (08:08→20:33)
[2025-06-28] MEDS: PLAVIX PO (09:49)
--- NOTE | 2025-06-28 10:52 | W.PN.HOSP.TC ---
Today's Communication/Plan
-
Cardiology consult.
Echocardiogram
Assessment / Plan
Assessment / Plan
Impression:
This is a 85 y.o female with past medical history significant for hypertension, NSTEMI, hyperlipidemia, GERD who presents to the emergency department with some chest pain/epigastric discomfort from some shortness of breath.
She has been treated for reflux/heartburn symptoms over the last month, for the last 2 days she has had epigastric pain with associated nausea but no vomiting. While in the emergency department LFTs with normal bili, slight elevation in AST and ALT,
lipase pending.
Abdominal u/s: There is mild biliary duct dilation with the common bile duct measuring up to 9 mm. Additionally there is mild dilation of the visualized pancreatic duct measuring up to 5 mm. An obstructing lesion or a ampullary stone is possible.
Biliary sludge. The gallbladder wall measures 3 mm which is upper limits of normal. There are no sonographic findings suggestive of acute cholecystitis.
Patient admitted under hospitalist service, clear liquid diet, MRCP ordered, GI consulted,
MRCP showed:
1. Mild to moderate biliary dilatation without evidence for choledocholithiasis.
2. Moderate gallbladder distention with minimal adjacent pericholecystic fluid.
3. Mild pancreatic ductal dilatation.
4. Minimal upper abdominal ascites.
5. Severe diverticulosis in the sigmoid colon.
Cardiology consulted for recurrent chest pain
Assessment/plan:
Biliary colic/choledocholithiasis/mild pancreatitis
- Admit to MedSurg
-Clear liquid diet for now as tolerated
-Pain control and antiemetics
-Trend LFTs
- Improved lipase
-GI consultation
MRCP showed:
1. Mild to moderate biliary dilatation without evidence for choledocholithiasis.
2. Moderate gallbladder distention with minimal adjacent pericholecystic fluid.
3. Mild pancreatic ductal dilatation.
4. Minimal upper abdominal ascites.
5. Severe diverticulosis in the sigmoid colon.
Chest pain atypical, CAD-history of NSTEMI, no stents.
On Plavix and statin (Plavix was on hold for possible procedure)
Repeat EKG unremarkable and negative troponin
Consulted cardiology
Echocardiogram.
Hypertension
-Will continue p.m. lisinopril as well as regular carvedilol (hold for bradycardia)
-Chlorthalidone in a.m.
CODE STATUS: Full code
DVT prophylaxis: Lovenox
Diet: clear liquid diet
Family communication: Discussed with family at bedside
Disposition: Cardiology consult.
Echocardiogram
Total time spent on today's encounter was 65 minutes which included time spent in counseling the patient/family regarding diagnosis and treatment plan as listed above, goals of care, and symptom management. Case was discussed with nursing staff,
specialists, and care coordinators/case management. All labs and imaging personally reviewed by me. Remainder the time spent in detailed review of previous records, lab data, imaging, and other medical provider documentation.
Anticipated Discharge: Within 24 hours
Subjective/Interval History
-
Date of Service: June 28, 2025
Patient seen and examined at bedside, still with some epigastric pain, last night patient developed chest pain radiated to the back, or shortness of breath.
Objective Data
-
Labs:
Laboratory Results
06/28/25
06:33
WBC 6.6
Hgb 10.9 L
Hct 34.8 L
Plt Count 286
Sodium 139
Potassium 3.7
Chloride 106
Carbon Dioxide 27
BUN 16
Creatinine 0.7
Glucose 114 H
Calcium 9.6
Total Bilirubin 0.7
AST 30
ALT 63 H
Alkaline Phosphatase 68
Vital Signs:
Vital Signs
Temp Pulse Resp BP Pulse Ox
97.6 F 53 16 162/79 96
06/28/25 07:00 06/28/25 07:00 06/28/25 07:00 06/28/25 08:08 06/28/25 07:00
I&O
06/27/25 06/28/25 06/29/25
06:59 06:59 06:59
Intake Total 1949
Balance 1949
Physical Exam
-
General: Well Developed, Well Nourished, No Apparent Distress and Comfortable
HEENT: Normocephalic, Atraumatic, Moist Mucous Membranes, No Ptosis, PERRLA and Nose Appears Normal
Respiratory: Clear to Auscultation and Non Labored Respirations
Cardiac: Regular Rhythm and S1/S2
Breast: Deferred by me
GI: Soft, Nondistended, Normal Bowel Sounds and Tender
Genito-urinary: No Costovertebral Tender
Musculoskeletal: No Clubbing, No Cyanosis and No Edema
Skin: Warm
Neuro: Awake, Alert, Oriented, AO x 3 and No Motor Deficits
Psych: Calm
--- NOTE | 2025-06-28 12:07 | CM ---
CM following re: discharge planning.
Reviewed pt's chart, met with pt and pt's daughter at bedside.
Per chart review, clear liquid diet, MRCP today, continue supportive care.
Pt was born and grew up in [place], emigrated with family to [facility] [place] many years ago and resided with family in [facility]. Pt lives with 2SH, 1 steps to enter, has 3 supportive children. Per daughter pt uses a cane occasionally. No VN or
SNF history.
PT and OT will evaluate the pt to determine a level of care at discharge.
D/C plan: home with anticipated no needs vs VN.
CM will follow with discharge plan updates as hospitalization progresses
--- NOTE | 2025-06-28 12:10 | W.PN.GI.CBS2 ---
Addendum entered and electronically signed by Abdiaziz Post MD 06/28/25 13:19:
I saw and examined the patient.
The FARM OPERATIONS TECHNICAL DIRECTOR or PA's note was reviewed and I agree with the note.
Comment: Pt had episode of abd pain last night. Daughter at bedside to help with translation
ABD soft mild epigastric tender
REC:
MRCP showed no stone, but dilated CBD/PD
MRI with contrast ordered to r/o pancreatic head mass
Original Note:
Today's Communication / Plan
-
Needs MRI abdomen with contrast
Assessment / Plan
-
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
emergency room with 2-week history of intermittent epigastric discomfort however throughout Friday afternoon she had some eggplant and stuff soup kidney with sausage and developed epigastric discomfort with radiation through the back. She also
got anxious and had some chest discomfort. She felt 'sick to her stomach'. This continued throughout the night. After this they decided to proceed to the emergency room for further evaluation. We are asked to evaluate for the same. WBC 6.8,
hemoglobin 11.4, hematocrit 35.8, platelets 305, MCV 71.7, MCH 22.8 (microcytic indices dating back to 2016), PT 12.7, INR 0.93, sodium 140, potassium 3.9, BUN 18, creatinine 0.8, glucose 114, total bilirubin 0.6, direct bilirubin 0.4, AST 42 (77),
ALT 84, (115), alk phos 73, (71), troponin <0.012, proBNP 243, albumin 4.1, lipase 226 (512). Ultrasound abdomen showing mild biliary ductal dilatation with CBD measuring up to 9 mm. Mild dilatation of the visualized pancreatic duct measuring up
to 5 mm. Recommend MRCP. Biliary sludge.
MRI/MRCP abdomen without contrast 06/28/2025:
IMPRESSION:
1. Mild to moderate biliary dilatation without evidence for choledocholithiasis.
2. Moderate gallbladder distention with minimal adjacent pericholecystic fluid.
3. Mild pancreatic ductal dilatation.
4. Minimal upper abdominal ascites.
5. Severe diverticulosis in the sigmoid colon.
Impression:
Right upper quadrant/epigastric pain
Dilated CBD and Pancreatic duct
Biliary Sludge
Mildly Elevated AST/ALT
On Plavix, last dose 06/27/2025
Anemia, microcytic indices noted since 2017, ? thalassemia
- Iron studies within normal limits
Plan:
-Continue PPI
- Will need to reorder MRI abdomen with contrast, to further evaluate biliary and pancreatic ductal dilatation to ensure no masses.
-Trend LFTs
-Further recommendations to be forthcoming.
Subjective
Subjective
Date of Service: June 28, 2025
Patient with episode of epigastric discomfort last evening that went up into her chest. She was given a dose of Dilaudid with relief. MRI abdomen with MRCP performed however without contrast. No sign of choledocholithiasis however dilated ducts.
Will need to repeat with contrast. Plavix on hold as of today in case need for EUS/ERCP. Cardiology consult pending. Patient afebrile, no leukocytosis. Total bilirubin 0.7, direct bilirubin 0.2, AST 30 (42), ALT 63 (84), alk phos 68 (73).
Objective
Data Reviewed
Laboratory Data:
Laboratory Results
06/28/25 06:33
06/28/25 06:33
Laboratory Results
PT 12.7 Sec (11.4-14.6) 06/26/25 13:54
INR 0.93 06/26/25 13:54
Total Bilirubin 0.7 mg/dl (0.2-1.3) 06/28/25 06:33
AST 30 U/L (14-36) 06/28/25 06:33
ALT 63 U/L (0-35) H 06/28/25 06:33
Alkaline Phosphatase 68 U/L (38-126) 06/28/25 06:33
Lipase 226 U/L (23-300) 06/27/25 08:25
Vital Signs and I&O:
Vital Signs
Temp Pulse Resp BP Pulse Ox
97.6 F 53 16 162/79 96
06/28/25 07:00 06/28/25 07:00 06/28/25 07:00 06/28/25 08:08 06/28/25 07:00
I&O
06/27/25 06/28/25 06/29/25
06:59 06:59 06:59
Intake Total 1949
Balance 1949
Physical Exam
Physical Exam
HEENT: Anicteric
Cardiology: Normal Sinus Rhythm
Pulmonary: Clear
GI: Soft, Non Distended, Tender (Epigastric tenderness) and Normal Bowel Sounds
Neuro: Non Focal
[2025-06-28] MEDS: TRICOR 48 MG PO (12:15)
--- NOTE | 2025-06-28 13:03 | CON.CAR ---
Addendum entered and electronically signed by Romeo Bruno MD 06/28/25 17:46:
85-year-old woman admitted with epigastric and chest discomfort, found to have abnormal LFTs with dilated common bile duct but no stones by MRCP. Currently feels well. Reportedly scheduled for repeat MRCP with contrast
PMH: History of LV dysfunction 2017 in the setting of sepsis, with improved EF and nonobstructive CAD by subsequent cardiac catheterization. Recent stress test, probably Lexiscan sestamibi, details unknown, GERD, hypertension, hypercholesterolemia,
anxiety, frequent UTIs
Outpatient Meds reviewed. Inpatient meds reviewed.
Rest of history as below. Reviewed in detail and agree unless otherwise specified.
161/68, pulse 58, respiratory rate 18, afebrile, pleasant, son at bedside, son serves in part as hand finisher, patient now comfortable head neck exam unremarkable, lungs are clear, no murmurs regular rate and rhythm JVD okay no carotid bruits, abdomen
benign extremities without clubbing cyanosis or edema
Hemoglobin 10.9, white count 6.6, MCV of 71, iron studies are normal, ALT is 63, peak was 115, AST normal, peak was 77, alkaline phosphatase normal, troponin undetectable x 2
Chest x-ray: Aortic atherosclerosis uncoiled aorta
Echo 06/28/2025: Top normal LV size, low normal contractility, cannot exclude mild inferior hypokinesis, MAC, trace MR, trace aortic regurgitation, pulmonary artery systolic pressure 27 mmHg
ECG: Sinus bradycardia, heart rate 48
MRCP: Diffusely dilated biliary system, no stone, mildly dilated pancreatic duct, atherosclerotic changes of the abdominal aorta, minimal ascites, diverticulosis
Impression:
Noncardiac chest pain
Possible cholecystitis by clinical history, though no stones identified on MRCP
Hypertension
GERD
Hyperlipidemia
Anxiety
UTIs
Plan:
Although she has some chest symptoms, it seems unlikely at present that her symptoms are cardiac in origin given negative troponin x 2, LFTs that karol in [place] felt, and dilated hepatobiliary system on MRCP.
Will review records from her assistant food service manager Dr. Haas. She reportedly had a nuclear sestamibi study earlier this year.
Consider decreasing carvedilol given bradycardia.
Echocardiogram is overall satisfactory.
Would not pursue any further cardiac testing at this time, and she can follow-up to Dr. Haas as an outpatient.
Original Note:
Consultation
Consultation Request
Date/Time Consultation Requested: 06/28/2025 10:52
Date/Time Consultation Performed: 06/28/2025 12:30
Requesting Provider: Lemuel Yadav MD
Performing Provider: Gonzalez Anderson DO (Resident); Romeo Bruno MD
Reason for Consultation: Chest Pain
Medical History
-
Chief Complaint: Chest Pain
History of Present Illness:
Diane Quiroz is a 85F w/ PMHx GERD, HTN, HLD, RIANNA, and frequent UTIs who presented to the ED at [facility] 2 days ago with chest/epigastrium pain, SOB, and fatigue. History mostly taken from daughter. They endorse that the patient had been generally
feeling unwell with headaches, nausea and fatigue for approximately one week prior to the onset of pain. Then, the day prior to arrival, the patient started to complain of pain in the epigastrium. Pain was intermittent and described as a tightness
that radiated from the epigastrium, around to the back and up to the bilateral shoulders. Episodes lasted approximately 1-2 hours at a time, and were not related to any exertion or eating. Associated symptoms included nausea without vomiting, and
subjective chills.
Patient additionally endorses she had a recent UTI that was treated with a complete course of abx. She was also recently started on gabapentin, however she discontinued due to headaches and fatigue.
From a cardiology perspective, the patient sees Dr. Haas at [facility]. In 2017, the patient had sepsis 2/2 UTI, and at that time, went into heart failure with an EF as low as 30% and global hypokinesis. Left and right heart caths were
performed as follow up, and at that time, systolic function was preserved and there was no evidence of ACS or wall motion abnormalities. Patient's daughter endorses that the patient recently had a stress ECHO w/ Dr Haas that he mentioned was
something to keep an eye on.
ED COURSE
Hypertensive on arrival to , other VSS.
Exam w/ anterior chest wall tenderness, abd soft and NTTP
Hb 11.3. AST 77, ALT 115 Lipase 512.
CXR w/ no cardiopulmonary abnormalities
EKG NSR
US Abd: mild biliary duct dilation with CBD @ 9mm, mild pancreatic duct dilation to 5mm, possible obstructing stone
HOSPITAL COURSE
LFTs normalized
Troponins negative x 2
BNP 243
Past Medical History
Past Medical History: GERD, HTN, Hypercholesterolemia and Other (RIANNA, frequent UTIs)
Past Surgical History: Other (no past cardiac surgeries)
Social History
Tobacco: Non-Smoker
Alcohol: None
Drug: None
Family History
Family History: Other (No family history of CAD, VT. Mother with IDDM, HTN. )
Allergies / Home Medications
Allergy/AdvReac Type Severity Reaction Status Date / Time
codeine Allergy Unknown Verified 10/12/24 12:02
erythromycin base Allergy Unknown Verified 10/12/24 12:02
levofloxacin Allergy Unknown Verified 10/12/24 12:02
Penicillins Allergy Unknown Verified 10/12/24 12:02
�Medication �Instructions �Recorded �Confirmed �Type
tramadol 50 mg tablet 50 mg PO HS Pain 03/18/17 06/27/25 History
clopidogrel 75 mg tablet (Plavix) 75 mg PO DAILY Blood Clot 10/02/17 06/27/25 History
Prevention/Tx
gabapentin 100 mg capsule 100 mg PO HS Neurological Condition 10/14/17 06/27/25 History
ascorbic acid (vitamin C) 500 mg 500 mg PO DAILY Supplement 12/22/17 06/27/25 History
tablet (Vitamin C)
tamsulosin 0.4 mg capsule (Flomax) 0.4 mg PO DAILY Urinary Issue 06/27/18 06/27/25 History
carvedilol 25 mg tablet (Coreg) 25 mg PO BID Blood Pressure 05/26/19 06/27/25 History
atorvastatin 40 mg tablet (Lipitor) 40 mg PO QPM High Cholesterol 06/26/25 06/27/25 History
chlorthalidone 12.5 mg tablet 12.5 mg PO DAILY Fluid 06/26/25 06/27/25 History
Retention/Swelling
fenofibrate nanocrystallized 48 mg 48 mg PO DAILY@1200 High 06/26/25 06/27/25 History
tablet (Tricor) Cholesterol
lisinopril 40 mg tablet 40 mg PO QPM Blood Pressure 06/26/25 06/27/25 History
pantoprazole 20 mg tablet,delayed 20 mg PO QPM Gastrointestinal Issue 06/26/25 06/27/25 History
release (Protonix)
Review of Systems
-
History Source: Patient
All other systems: Negative unless noted
Physical Exam
Vital Signs
Temp Pulse Resp BP Pulse Ox
97.6 F 53 16 162/79 96
06/28/25 07:00 06/28/25 07:00 06/28/25 07:00 06/28/25 08:08 06/28/25 07:00
Lab Results
06/28/25 06:33
06/28/25 06:33
Troponin I < 0.012 ng/ml 06/28/25 06:33
Tie-S-Chubmvcqrxy Pept 243 pg/ml 06/26/25 13:54
Physical Exam
General: No Apparent Distress and Comfortable
Respiratory: Clear and Non Labored Respirations; Negative Wheezes, Crackles or Rhonchi
Cardiac: S1/S2 and Regular Rhythm; Negative Peripheral Edema
Neuro: Awake
Psych: Calm
Impression / Plan
-
Diane Quiroz is a 85F w/ PMHx GERD, HTN, HLD, RIANNA, and frequent UTIs who presented with what appeared to be epigastric pain with mildly elevated transaminases and lipase, and ultrasonographic evidence of possible obstructing stone with ductal
dilations. Over the hospital course, LFTs have normalized and MRCP does not show a stone, which may represent a passed stone. In the interim, troponins and BNP have been negative and within normal range respectively. We were consulted to evaluated
for potential cardiac source of the pain. Given the patient's history, as well as the clinical course and prior studies performed this admission, there is low suspicion that the patient's pain is cardiac in nature. Still, given her cardiac history,
it may be prudent to update her echo to evaluate for structural cardiac changes.
PLAN
Reached out to Dr. Haas' office to send results of all recent cardiac studies.
Update ECHO if recent ECHO not performed.
Continue to monitor for episodes of chest pain.
Okay to continue cardiac meds; atorvastatin/Fenofibrate, carvedilol, chlorthalidone, Lisinopril.
Data Reviewed
-
EKG: Tracing Personally Visualized and interpreted and Report Reviewed by me
Radiology: Image Personally Visualized and interpreted and Report Reviewed by me
Ultrasound: Report Reviewed by me
Labs: Labs Reviewed by me and Discussed with Patient
Total Time Spent with Patient (in minutes): 42
[2025-06-28 15:00] VITALS: BP 161/68
[2025-06-28] MEDS: LIPITOR 40 MG PO (18:12)
[2025-06-28] MEDS: NSS (PRESERVATIVE FREE) 10 ML IV (18:13)
[2025-06-28] MEDS: ZESTRIL 40 MG PO (18:13)
[2025-06-28] MEDS: LOVENOX 40 MG SC (18:13)
[2025-06-28] MEDS: PROTONIX IV 40 MG IV (18:14)
[2025-06-28 23:25] VITALS: BP 102/53
[2025-06-29] MEDS: DILAUDID 0.25 MG IV (04:15)
[2025-06-29 06:46] LABS: Hematocrit 36.3 % (37.0-47.0); Hemoglobin 11.5 g/dL (12.0-16.0); Mean Corp Hgb Conc. 31.7 g/dL (33.0-37.0); Mean Corpuscular Volume 70.9 fL (81.0-99.0); Platelet Count 299 10^3/uL (130-400); Red Cell Dist. Width 15.4 % (11.5-14.5)
[2025-06-29 07:15] VITALS: BP 130/72
[2025-06-29 07:23] LABS: ALT (SGPT) 51 U/L (0-35); AST (SGOT) 26 U/L (14-36); Albumin 4.1 g/dl (3.5-5.0); Alkaline Phosphatase 67 U/L (38-126); Blood Urea Nitrogen 16 mg/dl (7-17); Calcium 9.8 mg/dl (8.4-10.2); Carbon Dioxide 27 mmol/L (22-30); Chloride 104 mmol/L (98-107); Estimated Creatinine Clearance 51 ml/min; Glucose 114 mg/dl (70-99); Potassium 3.4 mmol/L (3.5-5.1); Sodium 138 mmol/L (135-145); Total Protein 6.7 g/dl (6.3-8.2); eGFR > 60.00
[2025-06-29] MEDS: KCL ELIXIR 20 MEQ PO (08:50)
[2025-06-29] MEDS: FLOMAX 0.4 MG PO (08:51)
[2025-06-29] MEDS: COREG 25 MG PO (08:51)
--- NOTE | 2025-06-29 11:07 | W.PN.HOSP.TC ---
Today's Communication/Plan
-
MRI with contrast pending.
Possible discharge home if normal
Assessment / Plan
Assessment / Plan
Impression:
This is a 85 y.o female with past medical history significant for hypertension, NSTEMI, hyperlipidemia, GERD who presents to the emergency department with some chest pain/epigastric discomfort from some shortness of breath.
She has been treated for reflux/heartburn symptoms over the last month, for the last 2 days she has had epigastric pain with associated nausea but no vomiting. While in the emergency department LFTs with normal bili, slight elevation in AST and ALT,
lipase pending.
Abdominal u/s: There is mild biliary duct dilation with the common bile duct measuring up to 9 mm. Additionally there is mild dilation of the visualized pancreatic duct measuring up to 5 mm. An obstructing lesion or a ampullary stone is possible.
Biliary sludge. The gallbladder wall measures 3 mm which is upper limits of normal. There are no sonographic findings suggestive of acute cholecystitis.
Patient admitted under hospitalist service, clear liquid diet, MRCP ordered, GI consulted,
MRCP showed:
1. Mild to moderate biliary dilatation without evidence for choledocholithiasis.
2. Moderate gallbladder distention with minimal adjacent pericholecystic fluid.
3. Mild pancreatic ductal dilatation.
4. Minimal upper abdominal ascites.
5. Severe diverticulosis in the sigmoid colon.
Cardiology consulted for recurrent chest pain
Echo shows:
1. Top normal left ventricular size with low normal contractility, ejection fraction 52%. Mild inferior hypokinesis not excluded.
2. Thickened mitral leaflets, mitral annular calcification, trace mitral regurgitation and normal left atrium aortic sclerosis with trace aortic regurgitation.
3. Aortic sclerosis with trace aortic regurgitation.
4. Normal right heart, pulmonary artery systolic pressure is 27 mmHg.
5. In March 2017, the ejection fraction was 55 to 60%. Trace aortic and mitral regurgitation were present.
GI recommended repeat MRI with IV contrast.
If negative patient can be discharged home today.
Assessment/plan:
Biliary colic/choledocholithiasis/mild pancreatitis
- Admit to MedSurg
-Clear liquid diet for now as tolerated
-Pain control and antiemetics
-Trend LFTs
- Improved lipase
-GI consultation
MRCP showed:
1. Mild to moderate biliary dilatation without evidence for choledocholithiasis.
2. Moderate gallbladder distention with minimal adjacent pericholecystic fluid.
3. Mild pancreatic ductal dilatation.
4. Minimal upper abdominal ascites.
5. Severe diverticulosis in the sigmoid colon.
GI recommending to repeat MRI with IV contrast.
If negative, will be discharged home today
Chest pain atypical, CAD-history of NSTEMI, no stents.
On Plavix and statin (Plavix was on hold for possible procedure)
Repeat EKG unremarkable and negative troponin
Cardiology consulted for recurrent chest pain
Echo shows:
1. Top normal left ventricular size with low normal contractility, ejection fraction 52%. Mild inferior hypokinesis not excluded.
2. Thickened mitral leaflets, mitral annular calcification, trace mitral regurgitation and normal left atrium aortic sclerosis with trace aortic regurgitation.
3. Aortic sclerosis with trace aortic regurgitation.
4. Normal right heart, pulmonary artery systolic pressure is 27 mmHg.
5. In March 2017, the ejection fraction was 55 to 60%. Trace aortic and mitral regurgitation were present.
Was assisting as inpatient.
Hypertension
-Will continue p.m. lisinopril as well as regular carvedilol (hold for bradycardia)
-Chlorthalidone in a.m.
CODE STATUS: Full code
DVT prophylaxis: Lovenox
Diet: clear liquid diet
Family communication: Discussed with family at bedside
Disposition: MRI with contrast pending.
Possible discharge home if normal
Total time spent on today's encounter was 65 minutes which included time spent in counseling the patient/family regarding diagnosis and treatment plan as listed above, goals of care, and symptom management. Case was discussed with nursing staff,
specialists, and care coordinators/case management. All labs and imaging personally reviewed by me. Remainder the time spent in detailed review of previous records, lab data, imaging, and other medical provider documentation.
Anticipated Discharge: Today
Subjective/Interval History
-
Date of Service: June 29, 2025
Patient seen and examined at bedside, denies any chest pain or shortness of breath, no abdominal pain, no nausea, no vomiting, no diarrhea or constipation.
Objective Data
-
Labs:
Laboratory Results
06/29/25
06:14
WBC 9.5
Hgb 11.5 L
Hct 36.3 L
Plt Count 299
Sodium 138
Potassium 3.4 L
Chloride 104
Carbon Dioxide 27
BUN 16
Creatinine 0.7
Glucose 114 H
Calcium 9.8
Total Bilirubin 0.7
AST 26
ALT 51 H
Alkaline Phosphatase 67
Vital Signs:
Vital Signs
Temp Pulse Resp BP Pulse Ox
97.9 F 56 16 130/72 97
06/29/25 07:15 06/29/25 08:50 06/29/25 07:15 06/29/25 08:50 06/29/25 07:15
I&O
06/28/25 06/29/25 06/30/25
06:59 06:59 06:59
Intake Total 1949 1350 / 1350 480 / 480
Balance 1949 1350 / 1350 480 / 480
Physical Exam
-
General: Well Developed, Well Nourished, No Apparent Distress and Comfortable
HEENT: Normocephalic, Atraumatic, Moist Mucous Membranes, No Ptosis, PERRLA and Nose Appears Normal
Respiratory: Clear to Auscultation and Non Labored Respirations
Cardiac: Regular Rhythm and S1/S2
Breast: Deferred by me
GI: Soft, Nondistended, Normal Bowel Sounds and Tender
Genito-urinary: No Costovertebral Tender
Musculoskeletal: No Clubbing, No Cyanosis and No Edema
Skin: Warm
Neuro: Awake, Alert, Oriented, AO x 3 and No Motor Deficits
Psych: Calm
[2025-06-29 11:42] VITALS: BP 159/78
--- NOTE | 2025-06-29 11:48 | CM ---
CM following re: discharge planning.
Reviewed pt's chart, met with pt and pt's daughter Jacqueline at bedside [phone].
Discharge order noted. Both pt and her daughter are aware, expressed their agreement. IMM reviewed, placed on chrt, pt has a copy.
Both pt and her daughter requested VN services. VN choices provided, [facility] preferred. A referral to [facility] made.
Pt was born and grew up in [place], emigrated with family to [place] many years ago and resided with family in [facility]. Pt lives with 2SH, 1 steps to enter, has 3 supportive children. Per daughter pt uses a cane occasionally.
Please fax [facility] at [phone].
D/C plan: home with VN and family support. Daughter to transport.
--- NOTE | 2025-06-29 11:49 | W.DCSUMMARY ---
Discharge Summary
Discharge Data
Date of Admission: 06/26/25
Date of Discharge: 06/29/25
Total time spent discharging patient (in min): 40
-
Pending Results: No
Hospital Course
Hospital course
This is a 85 y.o female with past medical history significant for hypertension, NSTEMI, hyperlipidemia, GERD who presents to the emergency department with some chest pain/epigastric discomfort from some shortness of breath.
She has been treated for reflux/heartburn symptoms over the last month, for the last 2 days she has had epigastric pain with associated nausea but no vomiting. While in the emergency department LFTs with normal bili, slight elevation in AST and ALT,
lipase pending.
Abdominal u/s: There is mild biliary duct dilation with the common bile duct measuring up to 9 mm. Additionally there is mild dilation of the visualized pancreatic duct measuring up to 5 mm. An obstructing lesion or a ampullary stone is possible.
Biliary sludge. The gallbladder wall measures 3 mm which is upper limits of normal. There are no sonographic findings suggestive of acute cholecystitis.
Patient admitted under hospitalist service, clear liquid diet, MRCP ordered, GI consulted,
MRCP showed:
1. Mild to moderate biliary dilatation without evidence for choledocholithiasis.
2. Moderate gallbladder distention with minimal adjacent pericholecystic fluid.
3. Mild pancreatic ductal dilatation.
4. Minimal upper abdominal ascites.
5. Severe diverticulosis in the sigmoid colon.
Cardiology consulted for recurrent chest pain
Echo shows:
1. Top normal left ventricular size with low normal contractility, ejection fraction 52%. Mild inferior hypokinesis not excluded.
2. Thickened mitral leaflets, mitral annular calcification, trace mitral regurgitation and normal left atrium aortic sclerosis with trace aortic regurgitation.
3. Aortic sclerosis with trace aortic regurgitation.
4. Normal right heart, pulmonary artery systolic pressure is 27 mmHg.
5. In March 2017, the ejection fraction was 55 to 60%. Trace aortic and mitral regurgitation were present.
GI recommended repeat MRI with IV contrast.
Patient elected to do that as outpatient, prescription for MRI given.
During hospitalization patient was treated from the following
Biliary colic/choledocholithiasis/mild pancreatitis
[facility]
-Clear liquid diet for now as tolerated
-Pain control and antiemetics
-Trend LFTs
- Improved lipase
-GI consultation
MRCP showed:
1. Mild to moderate biliary dilatation without evidence for choledocholithiasis.
2. Moderate gallbladder distention with minimal adjacent pericholecystic fluid.
3. Mild pancreatic ductal dilatation.
4. Minimal upper abdominal ascites.
5. Severe diverticulosis in the sigmoid colon.
GI recommending to repeat MRI with IV contrast.
If negative, will be discharged home today
Chest pain atypical, CAD-history of NSTEMI, no stents.
On Plavix and statin (Plavix was on hold for possible procedure)
Repeat EKG unremarkable and negative troponin
Cardiology consulted for recurrent chest pain
Echo shows:
1. Top normal left ventricular size with low normal contractility, ejection fraction 52%. Mild inferior hypokinesis not excluded.
2. Thickened mitral leaflets, mitral annular calcification, trace mitral regurgitation and normal left atrium aortic sclerosis with trace aortic regurgitation.
3. Aortic sclerosis with trace aortic regurgitation.
4. Normal right heart, pulmonary artery systolic pressure is 27 mmHg.
5. In March 2017, the ejection fraction was 55 to 60%. Trace aortic and mitral regurgitation were present.
Was assisting as inpatient.
Hypertension
-Will continue p.m. lisinopril as well as regular carvedilol (hold for bradycardia)
-Chlorthalidone in a.m.
CODE STATUS: Full code
DVT prophylaxis: Lovenox
Diet: clear liquid diet
Family communication: Discussed with family at bedside
Disposition: Discharge home, patient elected to do MRI with contrast as op.
Total time spent on today's encounter was 40 minutes which included time spent in counseling the patient/family regarding diagnosis and treatment plan as listed above, goals of care, and symptom management. Case was discussed with nursing staff,
specialists, and care coordinators/case management. All labs and imaging personally reviewed by me. Remainder the time spent in detailed review of previous records, lab data, imaging, and other medical provider documentation.
Anticipated Discharge: Today
Discharge Plan
-
Patient Disposition: Home with Home Care
Discharge Diagnosis/Procedures: Biliary colic/choledocholithiasis/mild pancreatitis.
Chest pain
Hypertension
Condition: Good
Diet: Low Fat
Activity: As tolerated
Referrals:
Nando Collins MD [Family Provider, Family Practice]
Abdiaziz Post MD [Active, Gastroenterology] - in two to four weeks
Romeo Haas DO [Affiliate, Cardiology] - in one to two weeks
Prescriptions:
New
(DME) MRI abdomen with contrast
See Rx Instructions .Route .MEDSUPPLY Qty: 1 0RF
Rx Instructions:
Diagnosis.
Rule out pancreatic head mass
Please fax report to Dr. Abdiaziz Post
Continued
tramadol 50 MG tablet
50 mg PO HS
clopidogrel [Plavix] 75 MG tablet
75 mg PO DAILY
gabapentin 100 MG capsule
100 mg PO HS
Rx Instructions:
on hold
ascorbic acid (vitamin C) [Vitamin C] 500 MG tablet
500 mg PO DAILY
tamsulosin [Flomax] 0.4 MG capsule
0.4 mg PO DAILY
carvedilol [Coreg] 25 MG tablet
25 mg PO BID
atorvastatin [Lipitor] 40 mg Tablet
40 mg PO QPM
pantoprazole [Protonix] 20 mg Tablet,Delayed Release (Dr/Ec)
20 mg PO QPM
fenofibrate nanocrystallized [Tricor] 48 mg Tablet
48 mg PO DAILY@1200
chlorthalidone 12.5 mg Tablet
12.5 mg PO DAILY
lisinopril 40 mg Tablet
40 mg PO QPM
Discharge Orders:
Discharge Patient (As Directed); Ordered 06/29/25
Ordered By: Lemuel Yadav
Discharge Date and Time
Print Language: UPPER SORBIAN
--- NOTE | 2025-06-29 12:46 | W.PN.CD ---
Addendum entered and electronically signed by Rocky Craft MD 06/29/25 13:07:
I saw and examined the patient.
The REFINED SYRUP OPERATOR or PA's note was reviewed and I agree with the note.
Comment: General: Well developed, well nourished in NAD.
Chest pain is noncardiac. Discussed with patient and daughter at bedside. Stable cardiology status for discharge. Follow-up with Salvatore Haas cardiology
Original Note:
Today's Communication / Plan
-
.
Impression / Plan
-
Diane Quiroz is a 85F w/ PMHx GERD, HTN, HLD, RIANNA, and frequent UTIs who presented with what appeared to be epigastric pain with mildly elevated transaminases and lipase, and ultrasonographic evidence of possible obstructing stone with ductal
dilations. Over the hospital course, LFTs have normalized and MRCP does not show a stone, which may represent a passed stone. In the interim, troponins and BNP have been negative and within normal range respectively. We were consulted to evaluated
for potential cardiac source of the pain. Given the patient's history, as well as the clinical course and prior studies performed this admission, there is low suspicion that the patient's pain is cardiac in nature. ECHO was updated and looks okay
with EF 52%. We suspect the pain was either atypical in nature with negative work up, or more likely related to a passed stone. Patient to do MRI pancreatography in the outpatient setting.
PLAN
Patient to follow up with outpatient Cardiology, Dr. Haas.
Okay to continue cardiac meds; atorvastatin/Fenofibrate, carvedilol, chlorthalidone, Lisinopril, plavix.
Physical Exam
Vital Signs/Labs
Vital Signs
Temp Pulse Resp BP Pulse Ox
98.2 F 63 18 159/78 97
06/29/25 11:42 06/29/25 11:42 06/29/25 11:42 06/29/25 11:42 06/29/25 11:42
06/29/25 06:14
06/29/25 06:14
PT 12.7 Sec (11.4-14.6) 06/26/25 13:54
INR 0.93 06/26/25 13:54
06/26/25
13:54
Chb-T-Tgweploxjmc Pept 243
LAB Results
06/26/25 06/28/25
13:54 06:33
Troponin I < 0.012 < 0.012
Physical Exam
Constitutional: No acute distress
Cardiovascular: Rhythm & rate is regular and Pedal edema is absent
Respiratory: Respiratory effort normal and Lungs clear to auscul.
Neuro/Psych: Alert
Data Reviewed
-
Date of Service: June 29, 2025
Echo: Tracing Personally Visualized and interpreted and Report Reviewed by me
Labs: Labs Reviewed by me
Total Time Spent with Patient (in minutes): 22
== END 2025-06-29 12:06 | disposition home health service (06) | DRG 444 ==
LOC: 2 NORTH 19:42
PROVIDERS: Emergency Medicine; Nurse Practitioner; ADMITTING PHYSICIAN Internal Medicine; ATTENDING PHYSICIAN General Practice; CONSULT PHYSICIAN Internal Medicine Cardiovascular Disease; CONSULT PHYSICIAN Internal Medicine Gastroenterology; EMERGENCY PHYSICIAN Emergency Medicine; FAMILY PHYSICIAN Student in an Organized Health Care Education/Training Program
DX: K80.50 Calculus of bile duct without cholangitis or cholecystitis without obstruction (principal); K85.90 Acute pancreatitis without necrosis or infection, unspecified; I50.22 Chronic systolic (congestive) heart failure; R07.89 Other chest pain; K82.8 Other specified diseases of gallbladder; I11.0 Hypertensive heart disease with heart failure; I25.10 Atherosclerotic heart disease of native coronary artery without angina pectoris; I25.2 Old myocardial infarction; D56.9 Thalassemia, unspecified; K21.9 Gastro-esophageal reflux disease without esophagitis; F41.9 Anxiety disorder, unspecified; I08.0 Rheumatic disorders of both mitral and aortic valves; D50.9 Iron deficiency anemia, unspecified; K57.30 Diverticulosis of large intestine without perforation or abscess without bleeding; E78.5 Hyperlipidemia, unspecified; Z79.899 Other long term (current) drug therapy
CPT/HCPCS: 71046; 74181; 76700; 80053; 81003; 81015; 82248; 82728; 83540; 83550; 83690; 83880; 84484; 85025; 85027; 85610; 87070; 93005; 93306; 99285

== ENCOUNTER 2025-06-29 20:01 | Emergency (ER) | payer MEDICARE, OTHER, SELFPAY ==
[2025-06-29] VITALS (7 sets, daily range): BP systolic 122–149; BP diastolic 56–72; PULSE 60–73; BMI 30.6
[2025-06-29 20:26] LABS: Hematocrit 35.2 % (37.0-47.0); Hemoglobin 11.3 g/dL (12.0-16.0); Mean Corp Hgb Conc. 32.1 g/dL (33.0-37.0); Mean Corpuscular Volume 70.1 fL (81.0-99.0); Nucleated Red Blood Cells % 0 %; Platelet Count 295 10^3/uL (130-400); Red Cell Dist. Width 15.5 % (11.5-14.5)
[2025-06-29 20:45] LABS: ALT (SGPT) 42 U/L (0-35); AST (SGOT) 25 U/L (14-36); Albumin 4.2 g/dl (3.5-5.0); Alkaline Phosphatase 63 U/L (38-126); Blood Urea Nitrogen 20 mg/dl (7-17); Calcium 9.6 mg/dl (8.4-10.2); Carbon Dioxide 24 mmol/L (22-30); Chloride 104 mmol/L (98-107); Glucose 193 mg/dl (70-99); Potassium 3.5 mmol/L (3.5-5.1); Sodium 137 mmol/L (135-145); Total Protein 6.8 g/dl (6.3-8.2); eGFR > 60.00
[2025-06-29 20:58] LABS: Troponin I < 0.012 ng/ml
[2025-06-29] MEDS: TYLENOL 650 MG PO (22:52)
[2025-06-29] MEDS: NSS 500 IV (23:00)
[2025-06-30] VITALS: BP 121/55
--- NOTE | 2025-06-30 00:15 | ED.GENMED ---
History of Present Illness
General
Chief Complaint: Fainting/Passed Out
Source: patient and family
Exam Limitations: none
Time Seen by Provider: 06/29/25 22:09
Nursing documentation reviewed up to this point in time: agreed with
History of Present Illness
History of Present Illness:
Patient is an 85-year-old female with history HTN who presents to the emergency department after syncopal event at home. She reports feeling very lightheaded and 'woozy' prior to syncopal event. At the time that she was sitting at the table, this
was witnessed by her daughter, and she did not hit her head. Patient states that she started to feel lightheaded and weak after taking her blood pressure medications this evening. Her daughter is concerned that she may have taken an extra
lisinopril. Just prior to her syncopal event states her blood pressure was 80s/60s.
Patient was brought to the emergency department via EMS for further evaluation. At this time, she reports a mild headache however denies any chest pain, shortness of breath, abdominal pain. She denies any numbness/tingling or weakness in
extremities. She denies any tearing back pain. No visual changes. No urinary symptoms.
Patient was discharged from the hospital earlier this morning after 3-day admission abdominal pain where she was found to have a mildly dilated CBD/PD however no evidence of stones. Her LFTs and lipase were trending down prior to discharge. She no
longer had abdominal pain or any chest discomfort. Patient is scheduled for outpatient MRCP with contrast next month to further evaluate ductal dilatation and rule out pancreatic head mass.
Past History
Past History
ED Past Medical History: GERD, HTN, Hypercholesterolemia, Psychiatric (anxiety) and Other (Frequent UTI's)
ED Past Surgical History: Gynecological and Orthopedic
Social History
Tobacco: Non-smoker
Alcohol: None
Drug: None
Personal:
Living: with family
Family History
Family History: Other
Review of Systems
Review of Systems
Allergies reviewed?: Yes
All Other Systems: ROS reviewed and negative except as documented in HPI and ROS
Phy Exam
Physical Exam
Physical Exam:
Vitals: Patient's vital signs are stable. Afebrile
General: Patient is well appearing, no acute distress
Skin: Warm and dry, no rashes or lesions
Head: Normocephalic, atraumatic
Eyes: Sclera nonicteric. EOMs intact. No nystagmus.
Throat: Protecting airway
Neck: Normal ROM, no cervical spine tenderness, no meningismus
Cardiac: Regular rate and rhythm, no murmurs.
Pulm: Normal respiratory effort, no wheezes, rales, rhonchi heard on exam
Abdomen: Abdomen soft and nontender. No rebound tenderness or guarding.
Extremities: No evidence of cyanosis or edema. 2+ palpable DP pulses bilateral
Neuro: AAOx3. No focal neurologic deficits. Strength 5/5 in bilateral upper and lower extremities
Psychiatric: Normal affect.
Course
Orders/Labs/Results
Orders:
Orders
06/29/25 20:10
ECG [Electrocardiogram (*1)] Urgent
Reason for Study: Syncope
EKG- Treatment ONCE
06/29/25 20:15
Complete Blood Count/With Diff Urgent
Comprehensive Metabolic Panel Urgent
Creatine Phosphokinase Urgent
Comment: ADD ON
Lipase Urgent
Comment: ADDED
Troponin I Urgent
06/29/25 22:32
Add On- LAB Urgent
Tests Added?: Lipase
CT Head W/o Iv Contrast Urgent
Comment:
Reason For Exam: headache, syncope
Orthostatic VS- Treatment ONCE
0.9% Sodium Chloride 500 ml [Nss] 500 ml IV BOLUS
Acetaminophen [Tylenol] 650 mg PO NOW STA
06/29/25 23:46
Add On- LAB Urgent
Comments:: LIPASE
Tests Added?: LIPASE
Abnormal Lab Results
06/29/25
20:15
Hgb 11.3 L g/dL
(12.0-16.0)
Hct 35.2 L %
(37.0-47.0)
MCV 70.1 L fL
(81.0-99.0)
MCH 22.5 L pg
(27.0-31.0)
MCHC 32.1 L g/dL
(33.0-37.0)
RDW 15.5 H %
(11.5-14.5)
Absolute Neuts (auto) 8.0 H 10^3/uL
(1.4-6.5)
Absolute Monos (auto) 0.7 H 10^3/uL
(0.1-0.6)
Neutrophils % 77.2 H %
(42.2-75.2)
Lymphocytes % 12.8 L %
(20.5-51.1)
BUN 20 H mg/dl
(7-17)
Glucose 193 H mg/dl
(70-99)
ALT 42 H U/L
(0-35)
06/29/25 20:15
06/29/25 20:15
Vital Signs
Initial and Last Documented VS:
Initial Vital Signs
Temp Pulse Resp BP Pulse Ox
98.5 F 68 16 127/58 95
06/29/25 20:04 06/29/25 20:04 06/29/25 20:04 06/29/25 20:04 06/29/25 20:04
Last Documented Vital Signs
Temp Pulse Resp BP Pulse Ox
98.5 F 58 19 133/55 95
06/29/25 20:04 06/30/25 00:30 06/30/25 00:30 06/30/25 00:30 06/30/25 00:30
MDM/Problems Addressed
Differential Diagnosis Includes:
Not limited to: Acute dehydration, medication error, orthostatic hypotension, vasovagal syncope, cardiac syncope, viral illness, etc.
MDM/Problems Addressed:
85 year-old female presenting after syncopal episode at home preceded by lightheadedness and nausea. No chest pain, shortness of breath. Fall was witnessed without any associated injuries. Her daughter is concerned that she may have taken an extra
dose of blood pressure medicine prior to syncope. She was discharged earlier today after a three-day hospital stay with suspected choledocholithiasis. Pain and lab values improving on discharge.
She has no persistent abdominal or chest pain. She is afebrile.
Patient normotensive with stable vital signs on arrival. Physical exam as above.
Differential broad. Suspect either vasovagal syncope or orthostatic hypotension secondary to dehydration. May have been transient hypotension secondary to medication error. Do not suspect cardiac process. Abdomen benign, do not suspect associated
to hospital admission or intra-abdominal process.
Basic labs without clinically significant abnormalities. Chemistry reveals very mildly elevated ALT, which is improved. All LFTs trending down since hospitalization. Troponin undetectable.
Will add on lipase however do not suspect pancreatic process although patient�s daughter is very concerned given recent admission. Will obtain head CT, give IV fluids and reassess.
Update: Lipase normal. Head CT nothing acute. Orthostatic vital signs okay and patient ambulating to bathroom steadily and asymptomatic.
Work up in ED negative. Suspect probable dehydration or medication error. Her blood pressure has been stable in ED. Do not feel admission indicated.
She will follow closely with primary care, cardiology. She has MRCP scheduled as directed by Pablo. Patient daughter comfortable with discharge plan, advised to hydrate and take medications as prescribed. Return precautions discussed.
Chronic conditions affecting care:
Pretension
Acute Exacerbation and/or Progression of Chronic Illness:
N/A
*Radiology
Radiology exam reviewed: preliminary read by ED provider (Head CT reviewed by me-no acute abnormalities) and radiology read reviewed
*Pulse Oximetry
SaO2: 89
Oxygen Mode of Delivery: Room air
Patient hypoxic: no
*EKG
Interpreted by ED Provider?: Yes
EKG Intrepretation Date: 06/30/25
Interpretation: abnormal
Comparison EKG: changes noted
Heart Rate: 71
Rate: normal
Rhythm: sinus
[place]: normal axis
Interval: normal QT interval
QRS Pattern: right bundle branch block
Ischemia: non-specific ST changes
*[place] Interpretation
Rate: normal
Interpretation: normal
Heart Rate: 60
Rhythm: sinus
*Critical Care Note
Total Time (30-74mins, 75-104mins- exclusive of procedures): Not Applicable
Data Reviewed
Review of Other/Old Records Reveals: Labs (Labs from admission including drawn this morning 06/29/2025 with AST of 26, ALT 51, alk phos 67), Records (Discharge summary from 06/29/2025) and Radiology Studies (MRCP from 06/28/2025)
ED Attending Note
-
Portions of this chart may have been created with voice recognition software.� Occasional wrong word or��sound alike� substitutions may have occurred due to the inherent limitations of voice recognition software.
Discharge Plan
Departure
Patient Disposition: Home (Routine Discharge)
Date of Disposition: 06/30/25
Time of Disposition: 00:33
Patient with high blood pressure during this ER visit?: No
Condition: Good
Discharge Problem:
Syncope
Instructions: Syncope (Fainting) (DC)
Prescriptions:
No Action
tramadol 50 MG tablet
50 mg PO HS
clopidogrel [Plavix] 75 MG tablet
75 mg PO DAILY
gabapentin 100 MG capsule
100 mg PO HS
Rx Instructions:
on hold
ascorbic acid (vitamin C) [Vitamin C] 500 MG tablet
500 mg PO DAILY
tamsulosin [Flomax] 0.4 MG capsule
0.4 mg PO DAILY
carvedilol [Coreg] 25 MG tablet
25 mg PO BID
atorvastatin [Lipitor] 40 mg Tablet
40 mg PO QPM
pantoprazole [Protonix] 20 mg Tablet,Delayed Release (Dr/Ec)
20 mg PO QPM
fenofibrate nanocrystallized [Tricor] 48 mg Tablet
48 mg PO DAILY@1200
chlorthalidone 12.5 mg Tablet
12.5 mg PO DAILY
lisinopril 40 mg Tablet
40 mg PO QPM
(DME) MRI abdomen with contrast
See Rx Instructions .Route .MEDSUPPLY Qty: 1 0RF
Rx Instructions:
Diagnosis.
Rule out pancreatic head mass
Please fax report to Dr. Abdiaziz Post
Referrals:
Nando Collins MD [Family Provider, [facility]] - Follow up in 2-3 days
Activity Restrictions/Additional Instructions:
RETURN TO THE EMERGENCY DEPARTMENT WITH ANY FEVERS, CHEST PAIN OR SHORTNESS OF BREATH, ABDOMINAL PAIN/BACK PAIN, PERSISTENT LIGHTHEADEDNESS/DIZZINESS OR WEAKNESS, OR ANY OTHER SYMPTOMS CONCERNING TO YOU
- As discussed�your lab values appear stable in the emergency department. Your head CT showed no acute findings. Your blood pressure was in the normal range throughout the duration of your time in the emergency department.
- Please be sure to stay well-hydrated at home. Take your medications as prescribed.
- As discussed�it is very important that you keep appointment for MRCP with contrast to further evaluate the pancreas as recommended by GI
- Follow-up with primary care and cardiology for further evaluation/management and to ensure that your symptoms improve
Monitor your symptoms closely and return to the emergency department with any acute worsening/new symptoms or any other concerns
Interventions
Interventions:
*Risk Screen - Suicide Last Done: 06/29/25 21:49
*General Assessment Last Done: 06/29/25 21:49
*Neglect/Abuse Screening Last Done: 06/29/25 21:49
*ED- Fall Risk Assessment Last Done: 06/29/25 21:49
*ED COVID-19 Vaccine History Last Done: 06/29/25 21:49
*Nursing Disposition Last Done: 06/30/25 00:53
ED- Cardiac Assessment Last Done: 06/29/25 21:55
ED- Neurological Assessment Last Done: 06/29/25 21:55
Discharge Date and Time
Discharge Date/Time: 06/30/25 00:54
Print Language: ITALIAN
[2025-06-30 00:17] LABS: Lipase 165 U/L (23-300)
[2025-06-30 00:30] VITALS: BP 133/55
== END 2025-06-30 00:54 | disposition home or self-care (01) ==
LOC: EMR 20:01
PROVIDERS: Emergency Medicine; EMERGENCY PHYSICIAN Emergency Medicine; FAMILY PHYSICIAN Student in an Organized Health Care Education/Training Program
DX: R55 Syncope and collapse (principal); I45.10 Unspecified right bundle-branch block; I10 Essential (primary) hypertension; E78.00 Pure hypercholesterolemia, unspecified; K21.9 Gastro-esophageal reflux disease without esophagitis; F41.9 Anxiety disorder, unspecified; K83.8 Other specified diseases of biliary tract
CPT/HCPCS: 99284; 96360; 70450; 80053; 82550; 83690; 84484; 85025; 93005